=== PATIENT | male | born 1935 | race Caucasian/White ===

== ENCOUNTER 2019-09-27 09:25 | Emergency (ER) | payer MEDICARE, BC, SELFPAY ==
--- NOTE | ~2019-09-27 | CT_ITS ---
EXAMINATION: CT brain wo con DATE: 09/27/2019 09:47 INDICATION: Fall. TECHNIQUE: Computed tomography (CT) of the head was performed without intravenous contrast. The mA wa s adjusted according to patient size. Iterative reconstruction technique was employed. Exam dose: 68 1.00 mGy-cm total exam DLP. COMPARISON: None FINDINGS: There is mild motion artifact. There is very prominent calcification of the carotid siphon and supraclinoid portions of the internal carotid arteries as well as basilar and bilateral vertebral artery calcifications. There is prominent nonspecific diminished attenuation of the subcortical and periventricular cerebral white matter.. This is likely secondary to chronic small vessel ischemic changes. There is prominence of the cortical sulci, ventricles, consistent with cerebral atrophy. There are so me cerebellar atrophy as well. No intracranial mass lesion or hemorrhage, midline shift or mass effect is detected. No subdural or epidural hematoma. No fracture or bone destruction of the cranial vault. IMPRESSION: Cerebral atherosclerosis and chronic small vessel ischemic changes of the cerebral white matter No acute intracranial finding or skull fracture Reviewed, dictated and finalized at [facility]. Reviewed, dictated and finalized at location A.
--- NOTE | ~2019-09-27 | XR_ITS ---
XR shoulder LT min 2V 09/27/2019 09:50 Indication: Left shoulder pain after fall Procedure: 4 views left shoulder Comparison: No prior studies for comparison. Findings: There is a comminuted minimally displaced left humeral neck fracture. Normal anatomic align ment of the glenohumeral and acromioclavicular joints. Osteopenia. No other fracture. Atherosclerosis of the aorta. There are median sternotomy wires from CABG. There is a prosthetic heart valve. Impression: 1: Comminuted minimally displaced left humeral neck fracture. Reviewed, dictated and finalized at location B. Impression: 1: Comminuted minimally displaced left humeral neck fracture.
[2019-09-27 09:20] VITALS: BP 156/80; PULSE 66; RESP 18; TEMP 36.7; O2SAT 99
--- NOTE | 2019-09-27 09:33 | ED.FALL ---
HPI - Fall General Chief Complaint: Fall Stated Complaint: FALL/L SHOULDER PAIN History of Present Illness HPI Narrative: He was trying to step up onto his dock this morning when he lost his balance and fell. He landed on his left shoulder. He had severe pain in the shoulder and was not able to use it to lift himself from the ground. He reports that he did strike his head in the fall. No LOC or wounds. No blood thinners. Related Data Home Medications Medication Instructions Recorded Confirmed cinacalcet 30 mg PO DAILY 01/20/19 02/04/19 furosemide 80 mg PO DAILY 01/20/19 02/04/19 levothyroxine 125 mcg PO DAILY 01/20/19 02/04/19 lisinopril 5 mg PO HS 01/20/19 02/04/19 Renal Caps 1 cap PO DAILY 02/02/19 02/04/19 sevelamer carbonate [Renvela] 800 mg PO TID 02/02/19 02/04/19 tamsulosin [Flomax] 0.4 mg PO HS 02/02/19 02/04/19 finasteride 5 mg PO HS 02/04/19 02/04/19 Allergies Allergy/AdvReac Type Severity Reaction Status Date / Time Penicillins Allergy Severe KIDNEY Verified 05/17/19 10:15 DAMAGE, RASH Sulfa (Sulfonamide AdvReac Unknown Nausea and Verified 05/17/19 10:15 Antibiotics) Vomiting Review of Systems Review of Systems: All systems reviewed & are unremarkable except as noted in HPI and below PMFSH Past Medical History Medical History Acute on chronic renal insufficiency Anemia (Unknown) Aortic valve disease Arthritis Cataracts, bilateral CHF (congestive heart failure) CKD (chronic kidney disease) ESRD (end stage renal disease) dialysis MWF GERD (gastroesophageal reflux disease) Glomerulonephritis Gout HTN (hypertension) Hypothyroid Neuropathy Pacemaker Surgical History Surgical History H/O transurethral resection of prostate History of bladder surgery History of total right knee replacement Hx of CABG x3 vessel, 2009 Hx of tonsillectomy S/P AVR Family History Family History Sibling Family history of Alzheimer's disease Family history of throat cancer Mother Family history of malignant neoplasm of breast in first degree relative Family history of heart disease in male family member before age 55 Patient's mother is Family history of cardiovascular disease Father Family history of heart disease in male family member before age 55 Patient's father is Family history of cardiovascular disease Other Family history of malignant neoplasm of male breast Social History Social History Smoking packs per day: 4 Smoking cigarettes per day: 80.0 Years smoked: 25 Smoking pack-years: 100.00 Smoking status: Former smoker Tobacco type: cigarettes Second hand tobacco smoke exposure: No Smoking end date: 03/16/82 Alcohol intake: former Substance use: never Gender identity (if verbalized by the patient): Male Spiritual care concerns: No Agree to blood products: Yes Exam Const: General: no acute distress Orientation/consciousness: patient oriented x3 HENMT: Head: normal to inspection Eyes: Pupils: Equal, round and reactive pupils present Neck: Neck: normal visual inspection and no lymphadenopathy Chest: Chest palpation & inspection: no tenderness Resp: Effort & Inspection: normal respiratory effort Auscultation: clear to auscultation bilaterally, no rales, no rhonchi and no wheezes Cardio: Jugular venous distension: no JVD Rate: regular rate Rhythm: regular rhythm Heart sounds: no murmurs GI: Inspection: non-distended GI Palp: Yes Soft to palpation and No Tenderness to palpation present (GI) Skin: General skin exam: normal color Neuro: General: patient oriented x3, moves all extremities, no focal motor deficits and CN's II-XI intact bilaterally Speech: normal speec
[2019-09-27 12:01] VITALS: BP 143/84; PULSE 109; RESP 18; TEMP 36.6; O2SAT 100
== END 2019-09-27 12:02 | disposition home or self-care (01) ==
LOC: ANHED 10:31
PROVIDERS: Emergency Provider Emergency Medicine; PCP Internal Medicine
DX: S42.212A Unspecified displaced fracture of surgical neck of left humerus, initial encounter for closed fracture (principal); Z87.891 Personal history of nicotine dependence; I13.2 Hypertensive heart and chronic kidney disease with heart failure and with stage 5 chronic kidney disease, or end stage renal disease; I50.9 Heart failure, unspecified; N18.6 End stage renal disease; Z99.2 Dependence on renal dialysis; K21.9 Gastro-esophageal reflux disease without esophagitis; M19.90 Unspecified osteoarthritis, unspecified site; E03.9 Hypothyroidism, unspecified; W01.0XXA Fall on same level from slipping, tripping and stumbling without subsequent striking against object, initial encounter
CPT/HCPCS: 70450; 73030; 99284

== ENCOUNTER 2019-09-30 11:43 | Emergency (ER) | payer MEDICARE, BC, SELFPAY ==
--- NOTE | ~2019-09-30 | XR_ITS ---
XR elbow LT min 3V 09/30/2019 14:09 INDICATION: Left elbow pain with edema PROCEDURE: 4 views left elbow COMPARISON: No prior studies for comparison. FINDINGS: Fracture, dislocation or subluxation is not identified. There is a partially calcified [place] t overlying the distal humerus. There are heterotopic calcifications in the overlying soft tissues. T he lateral view is nonstandard limiting evaluation for joint effusion. The soft tissues appear within normal limits. No foreign bodies are identified. IMPRESSION: 1: NO ACUTE BONE OR JOINT ABNORMALITY IDENTIFIED. Reviewed, dictated and finalized at location B.
--- NOTE | ~2019-09-30 | US_ITS ---
EXAMINATION: US venous doppler UE LT DATE: 09/30/2019 13:32 INDICATION: Left humerus fracture. TECHNIQUE: Hilario scale images with and without compression and Doppler images of the left upper extrem ity veins were obtained. COMPARISON: 02/05/2019 FINDINGS: The left internal jugular vein, subclavian vein, axillary vein, brachial veins, basilic vein, cephali c vein, radial vein, and ulnar vein are patent. Left upper extremity AV fistula patent. IMPRESSION: 1. Patent left upper extremity veins. No evidence of deep venous thrombosis. Reviewed, dictated and finalized at location B.
[2019-09-30 11:51] VITALS: BP 97/59; PULSE 73; RESP 16; TEMP 36.8; O2SAT 99
[2019-09-30 13:48] VITALS: BP 116/73; PULSE 92; RESP 20; O2SAT 98
[2019-09-30 13:51] LABS: Basophils Percent Auto 0.3 % (0.2-1.2); Eosinophils Absolute Auto 0.1 K/mm3 (0-0.3); Eosinophils Percent Auto 1.3 % (0-4.4); Hematocrit 30.5 % (42.0-52.0); Hemoglobin 10.1 g/dL (14.0-18.0); Immature Granulocyte Absolute 0.04 K/mm3 (0.00-0.031); Immature Granulocyte Percent A 0.7 % (0-0.5); Lymphocytes Absolute Auto 1.01 K/mm3 (0.9-3.2); Lymphocytes Percent Auto 16.5 % (18.3-44.2); Mean Corpuscular HGB Conc 33.1 g/dl (32-36); Mean Corpuscular Hemoglobin 33.1 pg (26-34); Mean Platelet Volume 9.5 fl (7.4-10.4); Monocytes Absolute Auto 0.5 K/mm3 (0.1-0.6); Monocytes Percent Auto 7.7 % (2.6-8.5); Neutrophils Absolute Auto 4.5 K/mm3 (1.3-6.7); Neutrophils Percent Auto 73.5 % (45.5-73.1); Platelet Count Result 164 k/mm3 (150-375); Red Blood Count 3.05 M/mm3 (4.6-6.20); Red Cell Distribution Width 14.8 % (11.5-14.5); White Blood Count 6.1 K/mm3 (4.5-10.0)
[2019-09-30 14:03] LABS: INR 1.2; Prothrombin Time 14.7 Seconds (11.1-14.7)
[2019-09-30 14:04] LABS: Partial Thromboplastin Time 36.6 SECONDS (22.3-36.8)
[2019-09-30 14:05] LABS: Alanine Aminotransferase 11 U/L (4-50); Albumin Level 3.3 g/dL (3.5-5.1); Alkaline Phosphatase 73 U/L (38-126); Aspartate Amino Transferase 20 U/L (17-59); Bilirubin,Total 1.3 mg/dL (0.2-1.3); Blood Urea Nitrogen 44 mg/dL (9-20); CRP 4.4 mg/dL (<1.0); Calcium 8.6 mg/dL (8.4-10.2); Carbon Dioxide 33 mmol/L (22-30); Chloride 89 mmol/L (98-107); Estimated CRCL calculation 9 ml/min; Estimated Glomerular Filt Rate 10; Glucose 108 mg/dL (75-110); Magnesium 2.2 mg/dL (1.6-2.3); Phosphorus 4.8 mg/dL (2.5-4.5); Potassium 4.2 mmol/L (3.4-5.0); Sodium 130 mmol/L (137-145)
--- NOTE | 2019-09-30 14:36 | ED.GENADULT ---
HPI - General Adult General Chief complaint: Extremity Injury, Upper <BROCK Foster Last Filed: 09/30/19 15:25> Stated complaint: arm swelling <BROCK Foster Last Filed: 09/30/19 15:25> Time Seen by Provider: 09/30/19 12:03 <BROCK Foster Last Filed: 09/30/19 15:25> Source: patient and family <BROCK Foster Last Filed: 09/30/19 15:25> Mode of arrival: ambulatory <BROCK Foster Last Filed: 09/30/19 15:25> Limitations: no limitations <BROCK Foster Last Filed: 09/30/19 15:25> History of Present Illness HPI narrative: Patient is an 84-year-old male who presents for reevaluation of left upper extremity pain and swelling patient notes that he was seen in the emergency department diagnosed with a left shoulder fracture placed in immobilizer on the and over the last day he has noticed swelling from the mid humerus down patient denies any new injury or trauma patient presents per private vehicle with his has been taking pain medication with improvement patient was scheduled to get dialysis today and his catheter is in the left arm where his injury is present. Patient is followed by Dr. Bernabe. Patient denies fever chills weakness or other complaints <BROCK Foster Last Filed: 09/30/19 15:25> Related Data Home medications: Home Medications Medication Instructions Recorded Confirmed cinacalcet 30 mg PO DAILY 01/20/19 02/04/19 furosemide 80 mg PO DAILY 01/20/19 02/04/19 levothyroxine 125 mcg PO DAILY 01/20/19 02/04/19 lisinopril 5 mg PO HS 01/20/19 02/04/19 Renal Caps 1 cap PO DAILY 02/02/19 02/04/19 sevelamer carbonate [Renvela] 800 mg PO TID 02/02/19 02/04/19 tamsulosin [Flomax] 0.4 mg PO HS 02/02/19 02/04/19 finasteride 5 mg PO HS 02/04/19 02/04/19 <BROCK Foster Last Filed: 09/30/19 15:25> Allergies/adverse reactions: Allergies Allergy/AdvReac Type Severity Reaction Status Date / Time Penicillins Allergy Severe KIDNEY Verified 09/30/19 11:57 DAMAGE, RASH Sulfa (Sulfonamide AdvReac Unknown Nausea and Verified 09/30/19 11:57 Antibiotics) Vomiting <Som Samayoa PA-C - Last Filed: 09/30/19 15:25> Review of Systems Review of Systems: All systems reviewed & are unremarkable except as noted in HPI and below <Som Samayoa PA-C - Last Filed: 09/30/19 15:25> PMFSH Past Medical History Medical History: Medical History Acute on chronic renal insufficiency Anemia (Unknown) Aortic valve disease Arthritis Cataracts, bilateral CHF (congestive heart failure) CKD (chronic kidney disease) ESRD (end stage renal disease) dialysis MWF GERD (gastroesophageal reflux disease) Glomerulonephritis Gout HTN (hypertension) Hypothyroid Neuropathy Pacemaker <Som Samayoa PA-C - Last Filed: 09/30/19 15:25> Surgical History Surgical History: Surgical History H/O transurethral resection of prostate History of bladder surgery History of total right knee replacement Hx of CABG x3 vessel, 2008 Hx of tonsillectomy S/P AVR <Som Samayoa PA-C - Last Filed: 09/30/19 15:25> Social History Social History: Social History Smoking packs per day: 4 Smoking cigarettes per day: 80.0 Years smoked: 25 Smoking pack-years: 100.00 Smoking status: Former smoker Tobacco type: cigarettes Second hand tobacco smoke exposure: No Smoking end date: 03/16/82 Alcohol intake: former Substance use: never Gender identity (if verbalized by the patient): Male Spiritual care concerns: No Agree to blood products: Yes <Som Samayoa PA-C - Last Filed: 09/30/19 15:25> Exam Narrative: Exam Narrative: GENERAL: Well-appearing, well-nourished, and in no acute distress.
[2019-09-30 15:41] VITALS: BP 131/72; PULSE 62; RESP 24
== END 2019-09-30 15:46 | disposition home or self-care (01) ==
PROVIDERS: Emergency Medicine Emergency Medical Services; Emergency Provider Emergency Medicine; PCP Internal Medicine
DX: R60.9 Edema, unspecified (principal); N18.6 End stage renal disease; I13.2 Hypertensive heart and chronic kidney disease with heart failure and with stage 5 chronic kidney disease, or end stage renal disease; Z99.2 Dependence on renal dialysis; I35.9 Nonrheumatic aortic valve disorder, unspecified; K21.9 Gastro-esophageal reflux disease without esophagitis; M10.9 Gout, unspecified; E03.9 Hypothyroidism, unspecified; Z95.0 Presence of cardiac pacemaker; G62.9 Polyneuropathy, unspecified; Z95.1 Presence of aortocoronary bypass graft; I25.10 Atherosclerotic heart disease of native coronary artery without angina pectoris; Z96.651 Presence of right artificial knee joint; H26.9 Unspecified cataract; F17.210 Nicotine dependence, cigarettes, uncomplicated
CPT/HCPCS: 36415; 73080; 80053; 83735; 84100; 85025; 85610; 85730; 86140; 93971; 96365; 99284; A9270; J0131

== ENCOUNTER 2020-02-05 10:59 | Emergency (ER) | payer MEDICARE, BC, SELFPAY ==
--- NOTE | ~2020-02-05 | CT_ITS ---
EXAMINATION: CT pelvis wo con EXAM DATE: 02/05/2020 12:25 INDICATION: left hip fracture . TECHNIQUE: Spiral CT pelvis wo con was performed without contrast. Axial, coronal and sagittal imag es were reviewed. The dose-length product (DLP) for this examination was 203.30 mGy-cm. The exposur e was tailored according to patient size (auto mA exposure control), and iterative reconstruction ( IR) was used as additional dose reduction technique. Comparison is made to prior examination from 01/20/2019. FINDINGS: There is comminuted left hip greater trochanteric fracture extending toward the lesser troc hanter posteriorly. There is about 1 cm of displacement. No definite fracture line extending through the femoral neck/intertrochanteric region. Uncertain whether or not this would require orthopedic int ervention, consult recommended. The pelvis is intact. Severe prostatomegaly and possible old TURP def ect. IMPRESSION: Left hip greater trochanteric fracture extending toward the lesser trochanter posteriorly , with mild displacement. No definitive fracture of the femoral neck/intertrochanteric region. Reviewed, dictated and finalized at location A. MACIST'S AIDE IMPRESSION: Left hip greater trochanteric fracture extending toward the lesser trochanter posteriorly, with mild displacement. No definitive fracture of the f emoral neck/intertrochanteric region.
--- NOTE | ~2020-02-05 | XR_ITS ---
EXAMINATION: XR hip LT min 3V w AP pelvis EXAM DATE: 02/05/2020 11:50 INDICATION: fall, left hip pain . Initial encounter. TECHNIQUE: Left hip frontal, crosstable lateral and 'frog-leg' projections for interpretation. Fronta l projection pelvis. There is no prior study for comparison. FINDINGS: There is acute closed posttraumatic fracture at the left greater trochanteric region, uncer tain whether or not this extends through the entire intertrochanteric region. Recommend CT scan for f urther evaluation. No hip dislocation. Moderate symmetric bilateral hip osteoarthritis. Scattered vas cular calcifications. Pelvic ring appears intact. IMPRESSION: Left greater trochanteric fracture; recommend CT to evaluate possibility fracture through the intertrochanteric region which would be treated surgically. Reviewed, dictated and finalized at location A. L CADD TECHNICIAN IMPRESSION: Left greater trochanteric fracture; recommend CT to evaluate possib ility fracture through the intertrochanteric region which would be treated surg ically.
[2020-02-05 11:05] VITALS: BP 121/60; PULSE 104; RESP 14; TEMP 36.9; O2SAT 99
--- NOTE | 2020-02-05 11:19 | PC.NURSE ---
patient brought back to ED room 22 after ground level fall today on his way to dialysis. c/o left hip pain. wants to stay in wheelchair due to pain. advised ok for now. may need to be on stretcher and undressed for MD. xray ordered in triage.
--- NOTE | 2020-02-05 11:45 | PC.NURSE ---
patient in xray now. tech here to get stretcher. patient assist of 2 at minimum.
[2020-02-05 13:06] VITALS: BP 127/78; PULSE 67; RESP 20; TEMP 36.3; O2SAT 100
[2020-02-05 13:08] VITALS: BP 127/78; O2SAT 100
--- NOTE | 2020-02-05 13:10 | PC.NURSE ---
resting on stretcher. changed into gown. attempted IV access x 2 without success. Camron PENALOZA to room. SL inserted. labs drawn. will discuss baez placement with provider. alert.oriented. reviewed current treatment plan with patient.
[2020-02-05 13:15] VITALS: O2SAT 100
[2020-02-05 13:18] LABS: Basophils Percent Auto 0.8 % (0.2-1.2); Eosinophils Absolute Auto 0.1 K/mm3 (0-0.3); Eosinophils Percent Auto 2.5 % (0-4.4); Hematocrit 30.5 % (42.0-52.0); Hemoglobin 10.1 g/dL (14.0-18.0); Immature Granulocyte Absolute 0.02 K/mm3 (0.00-0.031); Immature Granulocyte Percent A 0.4 % (0-0.5); Lymphocytes Absolute Auto 0.94 K/mm3 (0.9-3.2); Mean Corpuscular HGB Conc 33.1 g/dl (32-36); Mean Corpuscular Hemoglobin 33.6 pg (26-34); Mean Corpuscular Volume 101.3 fl (80-100); Mean Platelet Volume 9.6 fl (7.4-10.4); Monocytes Absolute Auto 0.3 K/mm3 (0.1-0.6); Monocytes Percent Auto 5.7 % (2.6-8.5); Neutrophils Absolute Auto 3.8 K/mm3 (1.3-6.7); Neutrophils Percent Auto 72.6 % (45.5-73.1); Platelet Count Result 134 k/mm3 (150-375); Red Blood Count 3.01 M/mm3 (4.6-6.20); Red Cell Distribution Width 14.3 % (11.5-14.5); White Blood Count 5.2 K/mm3 (4.5-10.0)
[2020-02-05 13:30] VITALS: O2SAT 100
[2020-02-05 13:31] VITALS: BP 130/56; O2SAT 100
[2020-02-05 13:32] LABS: Partial Thromboplastin Time 32.9 SECONDS (22.3-36.8); Prothrombin Time 14.2 Seconds (11.1-14.7)
[2020-02-05 13:37] LABS: Anion Gap 8 mmol/L (8-16); Blood Urea Nitrogen 48 mg/dL (9-20); Carbon Dioxide 33 mmol/L (22-30); Chloride 93 mmol/L (98-107); Estimated CRCL calculation 12 ml/min; Estimated Glomerular Filt Rate 13; Glucose 104 mg/dL (75-110); Potassium 4.5 mmol/L (3.4-5.0); Sodium 134 mmol/L (137-145)
--- NOTE | 2020-02-05 13:42 | PC.NURSE ---
patient ambulated with walker in room approximately 10 feet. patient instructed on toe touch weight bearing with left leg. gait appeared steady. patient concerned for the 2 steps he has to go up to get in his house.
--- NOTE | 2020-02-05 13:49 | PC.NURSE ---
spoke with provider. will call care coordination. patient states he was recently in rehab at a facility on [address] in [place].
--- NOTE | 2020-02-05 13:52 | PC.NURSE ---
spoke with health care law specialist. she will come down and meet with the patient.
--- NOTE | 2020-02-05 14:09 | ED.FALL ---
HPI - Fall General Chief Complaint: Fall Stated Complaint: fall, left hip pain Time Seen by Provider: 02/05/20 12:05 History of Present Illness HPI Narrative: Patient is an 84-year-old male who presents ER with left hip pain. Patient reports she was walking down the steps in front of his house when he missed the last step and fell onto his left hip. He is unable stand up because his leg kept rotating inwards and due to pain. He has no numbness or tingling. He did not strike his head or lose consciousness. Denies use of blood thinning medications. Related Data Home Medications Medication Instructions Recorded Confirmed cinacalcet 30 mg PO DAILY 01/20/19 12/06/19 furosemide 80 mg PO DAILY 01/20/19 12/06/19 lisinopril 5 mg PO HS 01/20/19 12/06/19 Renal Caps 1 cap PO DAILY 02/02/19 12/06/19 sevelamer carbonate [Renvela] 800 mg PO TID 02/02/19 12/06/19 Allergies Allergy/AdvReac Type Severity Reaction Status Date / Time Penicillins Allergy Severe KIDNEY Verified 02/05/20 13:15 DAMAGE, RASH Sulfa (Sulfonamide AdvReac Unknown Nausea and Verified 02/05/20 13:15 Antibiotics) Vomiting Review of Systems Review of Systems: All systems reviewed & are unremarkable except as noted in HPI and below Constitutional: Constitutional: Denies chills, Denies fever(s) and Denies weakness ENT: Denies nasal congestion and Denies sore throat Gastrointestinal: Gastrointestinal: Denies abdominal pain, Denies diarrhea, Denies nausea and Denies vomiting Musculoskeletal: Musculoskeletal: Denies back pain, Reports arthralgias and Denies joint swelling [facility] Past Medical History Medical History (Updated 02/05/20 @ 15:21 by Sukh Tracy MD) Acute on chronic renal insufficiency Anemia (Unknown) Aortic valve disease Arthritis Cataracts, bilateral CHF (congestive heart failure) CKD (chronic kidney disease) ESRD (end stage renal disease) dialysis MWF GERD (gastroesophageal reflux disease) Glomerulonephritis Gout HTN (hypertension) Hypothyroid Neuropathy Pacemaker Surgical History Surgical History H/O transurethral resection of prostate History of bladder surgery History of total right knee replacement Hx of CABG x3 vessel, 2008 Hx of tonsillectomy S/P AVR Family History Family History Sibling Family history of Alzheimer's disease Family history of throat cancer Mother Family history of malignant neoplasm of breast in first degree relative Family history of heart disease in male family member before age 55 Patient's mother is Family history of cardiovascular disease Father Family history of heart disease in male family member before age 55 Patient's father is Family history of cardiovascular disease Other Family history of malignant neoplasm of male breast Social History Social History Smoking packs per day: 4 Smoking cigarettes per day: 80.0 Years smoked: 25 Smoking pack-years: 100.00 Smoking status: Former smoker Tobacco type: cigarettes Second hand tobacco smoke exposure: No Smoking end date: 03/16/82 Alcohol intake: former Substance use: never Gender identity (if verbalized by the patient): Male Spiritual care concerns: No Agree to blood products: Yes Exam Narrative: Exam Narrative: GENERAL: Well-appearing, well-nourished, and in no acute distress. HEAD: Normocephalic, atraumatic. ENT: Mucous membranes moist. CHEST: Clear to auscultation. No respiratory distress. HEART: Regular rate and rhythm. Normal peripheral pulses. EXTREMITIES: Range of motion of bilateral upper extremities and right lower extremity. Tenderness over the left hip with limited range of motion due to pain. No tenderness with palpation to the distal extremity. Dialysis
--- NOTE | 2020-02-05 14:10 | PC.NURSE ---
reproductive healthcare assistant in room now.
--- NOTE | 2020-02-05 14:49 | PC.NURSE ---
SL removed. assisted patient with shoes and pants. aware to come pick him up. patient wants to get himself dressed the rest. call light in reach. waiting for dc papers.
--- NOTE | 2020-02-05 15:20 | PC.NURSE ---
patient assisted to finish dressing. assisted to wheelchair.
== END 2020-02-05 15:38 | disposition home or self-care (01) ==
PROVIDERS: Emergency Provider Emergency Medicine; PCP Internal Medicine
DX: S72.112A Displaced fracture of greater trochanter of left femur, initial encounter for closed fracture (principal); I13.2 Hypertensive heart and chronic kidney disease with heart failure and with stage 5 chronic kidney disease, or end stage renal disease; N18.6 End stage renal disease; Z99.2 Dependence on renal dialysis; Z87.891 Personal history of nicotine dependence; K21.9 Gastro-esophageal reflux disease without esophagitis; M10.9 Gout, unspecified; Z95.0 Presence of cardiac pacemaker; I25.10 Atherosclerotic heart disease of native coronary artery without angina pectoris; Z95.1 Presence of aortocoronary bypass graft; D64.9 Anemia, unspecified; I35.8 Other nonrheumatic aortic valve disorders; Z96.651 Presence of right artificial knee joint; W10.9XXA Fall (on) (from) unspecified stairs and steps, initial encounter
CPT/HCPCS: 36415; 72192; 73502; 80048; 85025; 85610; 85730; 99284

== ENCOUNTER 2020-03-20 09:45 | Outpatient (CLI) | payer MEDICARE, BC, SELFPAY ==
--- NOTE | ~2020-03-20 | XR_ITS ---
MODIFIED ESOPHAGRAM HISTORY: Dysphagia. TECHNIQUE: Modified barium esophagram was performed by speech pathologist under radiologist fluorosco pic guidance. This was recorded on tape. The exam was reviewed on 03/20/2020 11:56 BOILERMAKER SHIP. The DAP for this procedure was DAP is 2.6 Gycm2. Fluoroscopy time is 3.8 minutes. FINDINGS: Lateral projection of the cervical spine demonstrates normal alignment.. During pharyngea l phase there is reduced laryngeal elevation causing penetration and pyriform sinus residue. There is reduced tongue base retraction and pharyngeal squeeze. There is trace laryngeal penetration and aspi ration which cleared with cough. The cricopharyngeus muscle was prominent.. IMPRESSION: 1: Mild penetration with aspiration which clears with cough and swallow. 2: Please refer to speech pathologist report for additional detail. Reviewed, dictated and finalized at location A. ERMAKER SHIP
--- NOTE | 2020-03-21 15:34 | STOPEVAL ---
MODIFIED BARIUM SWALLOW: Thank you for referring Rico Abreu to [facility].? Attending Provider: DO ALEXIS Burleson Outpatient Evaluation ([facility]) Start: 03/21/20 14:49 Freq: Status: Active Protocol: Document 03/20/20 10:00 BECHERERT (Rec: 03/21/20 15:34 BECHERERT [email or web address]) Therapy Assessment Status Assessment Status Assessment Status Evaluation Outpatient Past Medical History Past Medical History Source of Past Medical History Recalled from Previous Visit, Confirmed with Patient/Family Neurological History Hx Neurological Disorders No Significant History Cardiovascular History Hx Coronary Artery Bypass Graft Yes: 3 vessel 2008 Hx Hypercholesterolemia Yes Hx Hypertension Yes: TAKES MEDS Hx Myocardial Infarction Yes Hx Pacemaker Yes: 04/2018 Hx Valve Replacement Yes: AORTIC PIG VALVE 2009 Respiratory History Hx Respiratory Disorders No Significant History Gastrointestinal History Hx Gastrointestinal Disorders No Significant History Genitourinary History Hx Benign Prostatic Hyperplasia Yes Hx Bladder Surgery Yes: BLOOD CLOT EXTRACTION X4 Hx Dialysis Yes: MWF Hx Kidney Stones Yes: 2018 Hx Renal Disease Yes Hx Transurethral Resection Yes: TURP 2002 Hx Urinary Tract Infection Yes: LAST DOSE ANTIBIOTIC Hx Other Genitourinary Disorders Yes: HEMATURIA SINCE 01/19/19, INDWELLING CATHETER Musculoskeletal History Hx Joint Replacement Yes: RTKA-2013 Hx Orthopedic Surgery Yes: RT KNEE SCOPE 1995 Hematological History Hx Blood Transfusion Reaction Yes Hx Other Hematological Disorders Yes: MGUST Endocrine History Hx Hypothyroidism Yes: TAKES MEDS HEENT History Hx Cataracts Yes: surgery Hx Tonsillectomy Yes Hx Eye Surgery Yes: right eye Hx Other HEENT Disorders Yes: FEVER BLISTER. GLASSES , UPPER DENTURE,LOWER PARTIAL Integumentary History Hx Skin Disorders No Significant History Reproductive History Hx Reproductive Disorders No Significant History Psychosocial History Hx Psychiatric Disorders No Significant History Pain History History of Any Previous or Ongoing No Significant History Instance of Pain Anesthesia History Hx Anesthesia Reactions No Significant History Other History Hx Implanted Device Yes: pacemaker Hx MRSA Yes Hx Recent Acute Infection Yes: UTI MEDICATED Prior Level of Function Prior Swallow Level Prior Intake Method Oral Prior Diet Soft and Bite-Sized (Level 6 Diet) Prior Liquid Consistency
== END 2020-03-20 09:46 | disposition home or self-care (01) ==
PROVIDERS: PCP Internal Medicine; Visit Provider Internal Medicine
DX: R13.10 Dysphagia, unspecified (principal)
CPT/HCPCS: 92611

== ENCOUNTER 2020-09-21 16:53 | Inpatient (IN) | payer MEDICARE, BC, SELFPAY ==
[2020-09-21] VITALS (15 sets, daily range): BP systolic 114–162; BP diastolic 54–80; PULSE 59–82; RESP 14–21; TEMP 36.3–36.9; O2SAT 94–100; BMI 21.0
--- NOTE | ~2020-09-21 | XR_ITS ---
XR urethrocystogram 09/21/2020 15:11 Indication: Urethral abnormality TECHNIQUE: Fluoroscopy used during urethrocystogram performed by [Mike Black MD] on 69 sec onds. 8 fluoroscopic images images captured. ] FINDINGS: Correlate with procedure note. IMPRESSION: Fluoroscopy used during urethrocystogram. Relate with procedural report. Reviewed, dictated and finalized at location A. IMPRESSION: Fluoroscopy used during urethrocystogram. Relate with procedural re port.
--- NOTE | ~2020-09-21 | CT_ITS ---
EXAMINATION: CT guide absc cath placement DATE: 09/23/2020 13:59 INDICATION: Urethral stricture. Urinary retention. TECHNIQUE: The procedure including the risks, benefits, and alternatives was discussed with the patie nt. Risks discussed included bleeding and infection. The patient understood the risks and benefits an d agreed to proceed. The skin overlying the suprapubic region was prepped and draped in usual sterile fashion. Anesthetic was administered with 1% lidocaine subcutaneously. An 18 gauge trochar needle w as inserted into the bladder with CT guidance. The needle was exchanged over a wire for 6 [place] and 8 Bahamian dilators and then for an 8.5 [place]ian pigtail catheter. The catheter was stitched to the skin, and a sterile dressing was applied. The mA was adjusted according to patient size. Iterative reconst ruction technique was employed. The dose-length product was 160.88 mGy-cm. There were no immediate co mplications. The urine was red-sary colored at the end of the procedure. FINDINGS: CT images demonstrate the catheter within the bladder. IMPRESSION: 1. Successful CT-guided suprapubic bladder drainage catheter placement. Reviewed, dictated and finalized at location A.
--- NOTE | 2020-09-21 13:10 | WPDANESEPPF ---
Anes - Initial Pre Proc Eval Procedure: Operation Date: 09/21/20 13:30 Proposed Procedures p Cystoscopy, Urethral Dilatation with Retrograde Pyelogram Bilateral - Mike Black MD Date/Time: 09/21/20 13:10 Surgeon: Mike Black MD Pre Op Diagnosis: urethral Stricture Patient Data Age: 85 Gender: M Height: Weight: Allergies Allergy/AdvReac Type Severity Reaction Status Date / Time Penicillins Allergy Severe KIDNEY Verified 09/21/20 18:13 DAMAGE, RASH Sulfa (Sulfonamide AdvReac Unknown Nausea and Verified 09/21/20 18:13 Antibiotics) Vomiting Home Medications Medication Instructions Recorded Confirmed Type cinacalcet 30 mg PO DAILY 01/20/19 09/21/20 History furosemide 80 mg PO DAILY 01/20/19 09/21/20 History Renal Caps 1 cap PO DAILY 02/02/19 09/21/20 History levothyroxine 125 mcg tablet See Rx Instructions .ROUTE 04/23/20 09/21/20 Rx .COMPLEX #90 tablet vitamin B complex-vitamin C-folic 1 tablet PO DAILY #90 tablet 06/05/20 09/21/20 Rx acid 0.8 mg tablet gabapentin 100 mg capsule See Rx Instructions .ROUTE 07/13/20 09/21/20 Rx .COMPLEX #180 cap Eliquis 2.5 mg PO BID 09/21/20 09/21/20 History amiodarone [Pacerone] 200 mg PO BID 09/21/20 09/21/20 History sevelamer carbonate [Renvela] 800 mg PO AC 09/21/20 09/21/20 History Patient hx anesthesia problems: none Family hx anesthesia problems: none [facility] Past Medical History Medical History (Updated 09/24/20 @ 15:50 by Manav Garcia MD) Adult hypothyroidism (02/03/13) Arthritis Benign prostatic hyperplasia Chronic anemia Coronary artery disease History of bypass and stents. Patient of Dr. Declan Branch at [facility]. End-stage renal disease on hemodialysis Dialysis days Thursday, Thursday, Thursday. Erythropoietin deficiency anemia Gastroesophageal reflux disease Glaucoma Gout History of Helicobacter pylori infection Hypertension Macular degeneration Monoclonal gammopathy of undetermined significance Neuropathy Pacemaker Paroxysmal atrial fibrillation Renal osteodystrophy Surgical History Surgical History History of aortic valve replacement with bioprosthetic valve (~08/2008) History of bilateral cataract extraction History of bladder surgery History of coronary artery bypass graft x 3 (~08/2008) History of cystoscopy History of pacemaker (~04/2018) History of tonsillectomy History of total right knee replacement (~2013) History of transurethral resection of prostate Family History Family History Sibling Family history of Alzheimer's disease Family history of throat cancer Mother Family history of malignant neoplasm of breast in first degree relative Family history of heart disease in male family member before age 55 Patient's mother is Family history of cardiovascular disease Father Family history of heart disease in male family member before age 55 Patient's father is Family history of cardiovascular disease Other Family history of malignant neoplasm of male breast Social History Social History Social History: Surrogate decision maker: Jessie Candelaria, . Code status: Full code. Smoking packs per day: 0.5 Smoking cigarettes per day: 10.0 Years smoked: 25 Smoking pack-years: 12.50 Smoking status: Former smoker Tobacco type: cigarettes Second hand tobacco smoke exposure: No Smoking end date: 02/25/83 Alcohol intake: never Alcohol use details: Social use, maybe 2 beers a month. Substance use: never Additional living arrangements comments: The patient lives in [place] with his Jessie. Additional occupation/education comments: Retired. Gender identity (if verbalized by the patient): Male Sexual Orientation (if Verbalized by t
--- NOTE | 2020-09-21 13:21 | ECG_ITS ---
Measurements Intervals [place] Rate: 62 P: IA: 0 QRS: -59 QRSD: 206 T: 103 QT: 515 QTc: 525 Interpretive Statements ELECTRONIC VENTRICULAR PACEMAKER BASELINE ARTIFACT- I, II, AVR, V1-V6 NO FURTHER INTERPRETATION IS POSSIBLE ATYPICAL ECG Electronically Signed On 09-21-2020 13:44:35 CDT by Otis Plascencia D.O.
[2020-09-21] MEDS: SODIUM CHLORIDE 0.9% IV 500 ML 30 ML IV CONT ×2 (13:30→15:09)
--- NOTE | 2020-09-21 13:40 | WPDANESEPPF ---
Anes - Initial Pre Proc Eval Procedure: Operation Date: 09/21/20 13:30 Proposed Procedures p Cystoscopy, Urethral Dilatation with Retrograde Pyelogram Bilateral - Mike Black MD Date/Time: 09/21/20 13:40 Surgeon: Mike Black MD Pre Op Diagnosis: urethral Stricture Patient Data Age: 85 Gender: M Height: 1.78 m Weight: 66.5 kg Last Vital Signs Temp 98.4 F 09/21/20 13:07 Pulse 64 09/21/20 13:07 Resp 14 09/21/20 13:07 BP 157/61 H 09/21/20 13:07 Pulse Ox 99 09/21/20 13:07 Allergies Allergy/AdvReac Type Severity Reaction Status Date / Time Penicillins Allergy Severe KIDNEY Verified 09/21/20 13:04 DAMAGE, RASH Sulfa (Sulfonamide AdvReac Unknown Nausea and Verified 09/21/20 13:04 Antibiotics) Vomiting Home Medications Medication Instructions Recorded Confirmed Type cinacalcet 30 mg PO DAILY 01/20/19 09/21/20 History furosemide 80 mg PO DAILY 01/20/19 09/21/20 History Renal Caps 1 cap PO DAILY 02/02/19 09/21/20 History levothyroxine 125 mcg tablet See Rx Instructions .ROUTE 04/23/20 09/21/20 Rx .COMPLEX #90 tablet vitamin B complex-vitamin C-folic 1 tablet PO DAILY #90 tablet 06/05/20 09/21/20 Rx acid 0.8 mg tablet gabapentin 100 mg capsule See Rx Instructions .ROUTE 07/13/20 09/21/20 Rx .COMPLEX #180 cap sevelamer carbonate 800 mg tablet 800 mg PO TID #30 tablet 08/23/20 09/21/20 Rx amiodarone [Pacerone] 200 mg PO BID 09/21/20 09/21/20 History apixaban [Eliquis] 2.5 mg PO DAILY 09/21/20 09/21/20 History Patient hx anesthesia problems: none Family hx anesthesia problems: none [facility] Past Medical History Medical History Acute on chronic renal insufficiency Anemia (Unknown) Aortic valve disease Arthritis Cataracts, bilateral CHF (congestive heart failure) CKD (chronic kidney disease) ESRD (end stage renal disease) dialysis MWF GERD (gastroesophageal reflux disease) Glomerulonephritis Gout HTN (hypertension) Hypothyroid Neuropathy Pacemaker Surgical History Surgical History H/O transurethral resection of prostate History of bladder surgery History of total right knee replacement Hx of CABG x3 vessel, 2009 Hx of tonsillectomy S/P AVR Family History Family History Sibling Family history of Alzheimer's disease Family history of throat cancer Mother Family history of malignant neoplasm of breast in first degree relative Family history of heart disease in male family member before age 55 Patient's mother is Family history of cardiovascular disease Father Family history of heart disease in male family member before age 55 Patient's father is Family history of cardiovascular disease Other Family history of malignant neoplasm of male breast Social History Social History (Updated 06/05/20 @ 13:36 by Shavon Michelle MA) Smoking packs per day: 4 Smoking cigarettes per day: 80.0 Years smoked: 25 Smoking pack-years: 100.00 Tobacco type: cigarettes Second hand tobacco smoke exposure: No Smoking end date: 02/25/83 Alcohol intake: current Alcohol use details: Social Substance use: never Gender identity (if verbalized by the patient): Male Spiritual care concerns: No Agree to blood products: Yes Anes - Eval Final PreProcedure Day of Procedure 09/21/20 13:40 Patient weight: normal Heart: regular rate and rhythm Lungs: clear to auscultation Airway: Mallampati scale Neurological: alert and oriented Last oral intake: >/= 8 hours ASA classification: IV Emergent: no Anesthetic plan: proceed Anesthesia type and monitoring: general LMA and standard monitoring Informed Consent: The patient's anesthetic plan and its attendant risks and benefits were discussed with the patient/family/POAMeena Anderson
[2020-09-21 14:04] LABS: Anion Gap 12 mmol/L (8-16); Blood Urea Nitrogen 39 mg/dL (9-20); Calcium 9.3 mg/dL (8.4-10.2); Carbon Dioxide 29 mmol/L (22-30); Chloride 92 mmol/L (98-107); Estimated CRCL calculation 10 ml/min; Estimated Glomerular Filt Rate 13; Glucose 87 mg/dL (75-110); Potassium 4.2 mmol/L (3.4-5.0); Sodium 133 mmol/L (137-145)
[2020-09-21 14:12] LABS: Basophils Absolute Auto 0.1 K/mm3 (0.0-0.1); Basophils Percent Auto 1.6 % (0.2-1.2); Eosinophils Absolute Auto 0.2 K/mm3 (0-0.3); Eosinophils Percent Auto 3.4 % (0-4.4); Hematocrit 37.2 % (42.0-52.0); Hemoglobin 11.7 g/dL (14.0-18.0); Immature Granulocyte Absolute 0.03 K/mm3 (0.00-0.031); Immature Granulocyte Percent A 0.5 % (0-0.5); Lymphocytes Absolute Auto 1.17 K/mm3 (0.9-3.2); Mean Corpuscular HGB Conc 31.5 g/dl (32-36); Mean Corpuscular Hemoglobin 32.9 pg (26-34); Mean Corpuscular Volume 104.5 fl (80-100); Mean Platelet Volume 10.1 fl (7.4-10.4); Monocytes Absolute Auto 0.3 K/mm3 (0.1-0.6); Monocytes Percent Auto 5.4 % (2.6-8.5); Neutrophils Absolute Auto 3.8 K/mm3 (1.3-6.7); Neutrophils Percent Auto 68.1 % (45.5-73.1); Platelet Count Result 155 k/mm3 (150-375); Red Blood Count 3.56 M/mm3 (4.6-6.20); Red Cell Distribution Width 15.9 % (11.5-14.5); White Blood Count 5.6 K/mm3 (4.5-10.0)
--- NOTE | 2020-09-21 14:12 | WPDHPUPDATE1 ---
History and Physical Update Update Date/Time: 09/21/20 14:12 History and Physical has been reviewed, including an updated exam of the patient. There are NO changes in the patient's condition. Risks, benefits, and alternatives have been discussed and questions answered. Patient agrees to proceed with procedure.
--- NOTE | 2020-09-21 14:17 | SUR.PREOP ---
bloody urine drainage currently ,wearing adult diaper.
[2020-09-21] MEDS: ceFAZolin 2 GM/D5W 50 ML 2 GM/50 ML BAG IVPB (14:19)
[2020-09-21 14:23] LABS: INR 1.2
[2020-09-21 14:24] LABS: Partial Thromboplastin Time 35.1 SECONDS (22.3-36.8)
[2020-09-21] MEDS: LIDOCAINE HCL 2% GEL UROJET 10 ML PKG MUCOUS MEM (14:47)
[2020-09-21] MEDS: fentaNYL CITRATE INJ (*CRX) 100 MCG/2 ML VIAL 25 MCG IV PUSH ×7 (15:31→16:30)
--- NOTE | 2020-09-21 16:17 | W.PM.PROC2 ---
Procedure Note - Detailed Date of Procedure 09/21/20 Pre-op Diagnosis urethral Stricture Post-op Diagnosis same Procedure Performed Cystoscopy, retrograde urethrogram, attempted Lassiter catheter placement Surgeon Mike Black MD Anesthesia MAC Indications urinary retention Findings obliterated urethra Description of Procedure informed consent was obtained. Patient taken to the operating room. He was given preoperative IV antibiotics. he was given a mac anesthetic. We performed a retrograde urethrogram that showed contrast filling the penile and bulbar urethra and then stopping. We implants a cystoscope with flexible and rigid and noted significant scarring at the area of the membranous urethra without any contrast advancing past this area. After [id number] of trying to pass a wire and performing multiple retrograde urethrograms we elected to abort at this time. As the patient is currently on anticoagulation and is already scheduled for dialysis tomorrow, we elected not to place a suprapubic tube at this time. I expect we should place a SP tube went off anticoagulation or if the patient becomes uncomfortable from urinary retention Drains No Packing No Pathology none sent Complications No immediate complications Condition stable Disposition PACU
--- NOTE | 2020-09-21 16:45 | PM.IMHP ---
H&P: HPI History of Present Illness Date/Time: 09/21/20 16:45 Chief Complaint: Urethral stricture. Narrative: This is a very pleasant 85-year-old male whom the hospitalist service has been asked to direct admit from the PACU after he was found to have an obliterated urethra on cystoscopy performed due to urinary retention. His medical history is significant for end-stage renal disease on hemodialysis for many years, coronary artery disease status post bypass in 2008 with a reported recent stent placed within the last week although this has not yet been verified, aortic stenosis status post porcine aortic valve replacement in 2008, paroxysmal atrial fibrillation recently started apixaban and amiodarone, hypertension, and hypothyroidism. Despite being on dialysis for over a decade he still urinates between 200 to 400 mL a day though he has had increasing difficulties urinating over the last week or so. He was seen in the urology office today and despite 3 attempts, a Lassiter catheter was unable to be placed. He was then taken for cystoscopy per Dr. Black where he was found to have significant scarring in the area of the membranous urethra with no contrast advancing passes area consistent with obliterated urethra. After approximately 30 minutes of trying to pass a wire the procedure was aborted and it was felt that he would probably need a suprapubic catheter though that has also been postponed as he has been on clopidogrel and apixaban which will need to be held before the procedure. On his external medication history it looks like he was 1st prescribed clopidogrel on August 05, 2020 and he may have had a stent placed at that time however the patient maintains that he had a stent placed in his heart sometime this past week. He reports recently being started on apixaban however I do not see that in his external medication list. In any event, at the time my evaluation he has no specific complaints aside from moderate bladder spasms. He denies fever, chills, sweats, chest pain, shortness of breath, palpitations, nausea, vomiting, hematuria, and diarrhea. Review of Systems Review of Systems: Narrative: Twelve systems were reviewed with pertinent positives and negatives as per HPI. No recent cold or flu symptoms. No exposure to those positive for COVID-19. Except as documented, all other systems were reviewed and are negative. [facility] Past Medical History Medical History (Updated 09/21/20 @ 21:04 by Tennille White PA-C) Adult hypothyroidism (02/03/13) Arthritis Benign prostatic hyperplasia Chronic anemia Coronary artery disease History of bypass and stents. Patient of Dr. Declan Branch at [facility]. End-stage renal disease on hemodialysis Dialysis days Thursday, Thursday, Thursday. Gastroesophageal reflux disease Glaucoma Gout History of Helicobacter pylori infection Hypertension Macular degeneration Monoclonal gammopathy of undetermined significance Neuropathy Pacemaker Paroxysmal atrial fibrillation Surgical History Surgical History (Updated 09/21/20 @ 20:58 by Tennille White PA-C) History of aortic valve replacement with bioprosthetic valve (~08/2008) History of bilateral cataract extraction History of bladder surgery History of coronary artery bypass graft x 3 (~08/2008) History of cystoscopy History of pacemaker (~04/2018) History of tonsillectomy History of total right knee replacement (~2013) History of transurethral resection of prostate Family History Family History Sibling Family history of Alzheimer's disease Family history of throat cancer Mother Family history of malignant neoplasm of breast in first degree relative Family history of heart disease in male family member before age 55 Patient's mother is Family history of cardiovascular disease Father Family history of heart disease in male family member before age
[2020-09-21] MEDS: HYOSCYAMINE SULFATE 0.125 MG TABLET PO ×2 (16:49→22:11)
--- NOTE | 2020-09-21 17:59 | SUR.PHASEI ---
1740- abd changed aroundd penis. significantly less blood present.
--- NOTE | 2020-09-21 18:03 | ADMGEN ---
This patient, Rico Abreu, was admitted to -. Patient/family oriented to hospital policies and general routines including ID bracelet, bed and alarms, visiting hours, pain management, procedures, bathroom and other care routines, personal items, smoking policy, room service/diet, and visiting hours. Information on how to activate the Rapid Response Team has been discussed. Patient/Family are encouraged to report perceived risks to care and to ask questions if they do not understand what they are told or what they should do.
[2020-09-22] VITALS (22 sets, daily range): BP systolic 97–159; BP diastolic 46–73; PULSE 52–67; RESP 16–18; TEMP 36.2–37; O2SAT 94–100
[2020-09-22] MEDS: HYOSCYAMINE SULFATE 0.125 MG TABLET PO ×2 (04:28→21:29)
--- NOTE | 2020-09-22 04:45 | PC.NURSE ---
pt unable to void yet. c/o of discomfort, bladder scan shows 522 mL. o/c urologist notified. To make NPO for now in case procedure is to be done today. pt agreeable with plan. will ctm.
[2020-09-22 06:13] LABS: Hematocrit 31.2 % (42.0-52.0); Hemoglobin 9.7 g/dL (14.0-18.0); Mean Corpuscular HGB Conc 31.1 g/dl (32-36); Mean Corpuscular Hemoglobin 32.7 pg (26-34); Mean Corpuscular Volume 105.1 fl (80-100); Mean Platelet Volume 10.3 fl (7.4-10.4); Platelet Count Result 140 k/mm3 (150-375); Red Blood Count 2.97 M/mm3 (4.6-6.20); White Blood Count 5.7 K/mm3 (4.5-10.0)
[2020-09-22 06:53] LABS: Alkaline Phosphatase 71 U/L (38-126); Anion Gap 9 mmol/L (8-16); Aspartate Amino Transferase 26 U/L (17-59); Blood Urea Nitrogen 39 mg/dL (9-20); Calcium 8.5 mg/dL (8.4-10.2); Carbon Dioxide 29 mmol/L (22-30); Chloride 95 mmol/L (98-107); Estimated CRCL calculation 9 ml/min; Estimated Glomerular Filt Rate 11; Glucose 83 mg/dL (75-110); Sodium 133 mmol/L (137-145)
[2020-09-22 07:12] LABS: Alanine Aminotransferase < 6 U/L (4-50)
[2020-09-22 07:55] LABS: Folic Acid > 20.0 ng/mL (2.76->20)
--- NOTE | 2020-09-22 10:47 | PM.CNNEP ---
Assessment and Plan Assessment and plan (1) End-stage renal disease on hemodialysis: Code(s): N18.6 - End stage renal disease; Z99.2 - Dependence on renal dialysis Status: Acute Assessment and Plan: Rico has end-stage renal disease. He did not have dialysis yesterday so we will schedule this for today. We will not use heparin. his volume status looks okay. His potassium is okay. He does not have much fluid on. Will shoot for 1 or 2L (2) Urinary retention: Code(s): R33.9 - Retention of urine, unspecified Status: Acute Assessment and Plan: the patient is going to get a suprapubic catheter shortly hopefully. He is very uncomfortable (3) Coronary artery disease: Code(s): I25.10 - Atherosclerotic heart disease of [place] coronary artery without angina pectoris Status: Acute Assessment and Plan: he sees Dr. Branch as an outpatient. He has been doing well without any chest pain or shortness of breath (4) Paroxysmal atrial fibrillation: Code(s): I48.0 - Paroxysmal atrial fibrillation Status: Chronic Assessment and Plan: he has a pacemaker and his heart rate is Good in the 60s and his rhythm is regular. 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 We will use Epogen (7) Renal osteodystrophy: Code(s): N25.0 - Renal osteodystrophy Status: Acute Assessment and Plan: will check a [facility] History of Present Illness Reason for Consult Consult date: 09/22/20 Chief Complaint Chief complaint: urethral Stricture History of Present Illness Narrative: JOANA Shankar is a very pleasant 85-year-old gentleman who has multiple medical problems including coronary artery disease, hypothyroidism, end-stage renal disease on dialysis Wednesdays and Fridays, renal osteodystrophy, anemia of chronic kidney disease, BPH, arthritis, GERD, gout, monoclonal gammopathy of uncertain significance , paroxysmal atrial fibrillation. the patient has been having discomfort in his ashely area. He went to see Dr. Pacheco who scheduled him for cystoscopy. During cystoscopy they were unable to get through the urethra to the bladder. The tried passing a wire but were unable to so the procedure was abandoned and he was admitted. He says that he use to make some urine up until day before yesterday but now cannot pass any urine and his bladder is distended and he is very uncomfortable. He has some blood coming from his urethra as well. He is planned for a suprapubic catheter they are just waiting for his anticoagulants to wear off. The patient denies chest pain or shortness of breath. He did not have dialysis yesterday. Review of Systems Constitutional: Constitutional: Reports no additional constitutional complaints Eyes: Eyes: Reports no additional eye complaints ENT: Reports system reviewed and no additional complaints, except as documented Cardiovascular: Cardiovascular: Reports no additional cardiovascular complaints Respiratory: Respiratory: Reports no additional respiratory complaints Gastrointestinal: Gastrointestinal: Reports no additional gastrointestinal complaints Genitourinary: Genitourinary: Reports no additional male genitourinary complaints Musculoskeletal: Musculoskeletal: Reports no additional musculoskeletal complaints Integumentary/Breasts: Skin/Breast: Reports system reviewed and no additional complaints, except as docu Neurologic: Reports system reviewed and no additional complaints, except as documented Psychiatric: Psychiatric: Reports no additional psychiatric complaints Endocrine: Endocrine: Reports no additional endocrine complaints P
--- NOTE | 2020-09-22 11:37 | WPDUROPN2 ---
Progress Note: A&P Assessment and Plan (1) Urinary retention: Code(s): R33.9 - Retention of urine, unspecified Status: Acute (2) Urethral stricture: Code(s): N35.919 - Unspecified urethral stricture, male, unspecified site Status: Acute Additional Plan plan for dialysis today and placement of IR guided SP tube tomorrow after anticoagulation has had time to clear given renal impairment -hold pradaxa -I reviewed retrograde urethrogram and CT with radiology and given bowel adjacent to bladder and bilateral hernia, safest approach would be SP tube placed by IR followed by upsizing to larger bore SP cath when he has had more time off of anti-coagulation to decrease bleeding risks. -NPO at midnight Time Spent With Patient Time with patient: 25 - 35 minutes Subjective Subjective Date/Time Seen: 09/22/20 11:37 Interval history: unable to void. blader scan 500 this am. no pain. scheduled for dialysis today. Exam Const: General: comfortable and no acute distress Cardio: Rate: regular rate Rhythm: regular rhythm GI: Inspection: non-distended GI Palp: Yes Soft to palpation, No Tenderness to palpation present (GI) and No Guarding due to palpation present (GI) Skin: General skin exam: normal color and no rashes or lesions noted Extrem: General: normal to inspection Psych: Mental Status: mental status grossly normal Affect: normal affect Objective Data Vital Signs Vital Signs: Vital Signs - 24 hr 09/21/20 13:07 09/21/20 15:09 09/21/20 15:25 Temperature 36.9 C 36.5 C 36.5 C Pulse Rate 64 63 60 Respiratory Rate 14 16 14 Blood Pressure 157/61 H 120/55 L 155/75 H Pulse Oximetry 99 99 99 09/21/20 15:40 09/21/20 15:55 09/21/20 16:10 Temperature 36.5 C Pulse Rate 63 61 60 Respiratory Rate 17 16 21 H Blood Pressure 161/75 H 139/64 162/72 H Pulse Oximetry 99 96 96 09/21/20 16:20 09/21/20 16:25 09/21/20 16:45 Temperature Pulse Rate 63 62 62 Respiratory Rate 14 20 15 Blood Pressure 129/64 140/68 144/70 H Pulse Oximetry 96 96 95 09/21/20 17:00 09/21/20 17:15 09/21/20 17:45 Temperature Pulse Rate 60 60 68 Respiratory Rate 14 14 16 Blood Pressure 157/65 H 137/63 158/80 H Pulse Oximetry 94 94 96 09/21/20 18:00 09/21/20 18:30 09/21/20 22:00 Temperature 36.7 C 36.6 C 36.3 C L Pulse Rate 59 L 69 82 Respiratory Rate 16 16 16 Blood Pressure 154/68 H 154/70 H 114/54 L Pulse Oximetry 100 100 96 09/22/20 00:00 09/22/20 04:00 09/22/20 08:00 Temperature 36.4 C 36.2 C L 36.7 C Pulse Rate 63 60 64 Respiratory Rate 16 18 16 Blood Pressure 121/46 L 131/56 L 124/56 L Pulse Oximetry 97 98 100 Intake/Output Intake/Output: Intake & Output 09/19/20 09/20/20 09/21/20 09/22/20 23:59 23:59 23:59 23:59 Intake Total 50 Balance 50 Meds/Results Medications: Active Medications Generic Name Dose Route Start Last Admin Trade Name Freq PRN Reason Stop Dose Admin Acetaminophen 650 mg 09/21/20 21:12 Acetaminophen 325 Mg Tablet PO Q6H PRN Mild Pain (1-3) or Fever Hydrocodone Bitart/Acetaminophen 1 tab 09/21/20 21:14 Hydrocodone/Acetaminophen (*Crx) 5-325 Mg Tablet PO Q6H PRN Pain Rated 4-6 Epoetin Tyler-epbx 10,000 units 09/22/20 08:25 Epoetin Tyler-Epbx 10,000 Units/Ml Vial IV PUSH MOWEFR BRENDON Hyoscyamine 0.125 mg 09/21/20 21:14 09/22/20 04:28 Hyoscyamine Sulfate 0.125 Mg Tablet PO 0.125 mg Q4H PRN Administration Bladder Spasm Albumin Human 50 mls @ 999 mls/hr 09/22/20 08:25 Albutein IVPB 09/23/20 08:26 Q10M PRN HYPOTENSION Radiology Results: ITS Impressions Cystogram 09/21/20 18:20 IMPRESSION: Fluoroscopy used during urethrocystogram. Relate with procedural report. Labs Labs: Laboratory Results - last 24 hr 09/21/20 09/21/20 09/21/20 13:28 14:02 14:02 WBC 5.6 RBC 3.56 L Hgb 11.7 L Hct 37.2 L MCV 104.5 H MCH 32.9 MCHC 31.5 L RDW 15.9 H
--- NOTE | 2020-09-22 12:25 | PM.IMPN ---
Progress Note: A&P Assessment and Plan (1) Urethral stricture: Code(s): N35.919 - Unspecified urethral stricture, male, unspecified site Status: Acute Assessment and Plan: Patient had scheduled cystoscopy for 09/21. A retrograde urethrogram performed and showed contrast filling the penile and bulbar urethra and then stopping. Cystoscope noted significant scarring at the area of the membranous urethra without any contrast advancing past this area. After multiple attempts to pass a wire, the procedure was aborted. Patient was admitted with plans for suprapubic catheter tomorrow. Apixaban on hold. Because the patient reports having a stent placed sometime this week, we will need to confirm exactly what procedure he had done. Plavix not listed as a home medication. Records have been requested from Dr. Branch, his desktop technician at [facility], for review. (2) Urinary retention: Code(s): R33.9 - Retention of urine, unspecified Status: Acute Assessment and Plan: Despite being on dialysis for well over a decade, patient still urinates between 200 - 400 mL a day. Unfortunately he is having issues with retention related to the obliterated urethra and will need a suprapubic catheter. SP scheduled for tomorrow. (3) Chronic anemia: Code(s): D64.9 - Anemia, unspecified Status: Acute Assessment and Plan: Hemoglobin 11.7 on admission but dropped to 9.7 today. Some of this related to recent procedure with now penile bleeding. Possibly bleeding into the bladder? Chronic anemia related to his ESRD. Follow. (4) Paroxysmal atrial fibrillation: Code(s): I48.0 - Paroxysmal atrial fibrillation Status: Chronic Assessment and Plan: Continue amiodarone. Await records from recent hospitalization. Hold Eliquis until SP catheter placed. (5) Coronary artery disease: Code(s): I25.10 - Atherosclerotic heart disease of [place] coronary artery without angina pectoris Status: Acute Assessment and Plan: CAD s/p CABG x3v in 2008. Patient reports having a stent placed sometime within the last week but Plavix not listed on his home med list. He states he had to have laser therapy to his coronary arteries and stents placed. He was given Amio 200mg BID. Old records requested. We are waiting for confirmation of this procedure with his desktop technician, Dr. Declan Branch, at [facility]. (6) End-stage renal disease on hemodialysis: Code(s): N18.6 - End stage renal disease; Z99.2 - Dependence on renal dialysis Status: Acute Assessment and Plan: Patient missed HD yesterday and appears fluid overloaded. He states plan is for HD later today. Will hold Lasix and use HD to control fluid status. Dr. Bernabe consulted for dialysis and appreciate his input. (7) Hypertension: Code(s): I10 - Essential (primary) hypertension Status: Chronic Assessment and Plan: Blood pressures reviewed on 09/22. BP remains well controlled. Not on anti-HTN medications per se but does take Lasix. Hold lasix since patient will have HD later today. (8) Adult hypothyroidism: Onset Date: 02/03/13 Code(s): E03.9 - Hypothyroidism, unspecified Status: Acute Assessment and Plan: TSH normal. Continue levothyroxine (9) DVT prophylaxis: Code(s): Z29.9 - Encounter for prophylactic measures, unspecified Status: Acute Assessment and Plan: SCDs Subjective Date/time seen: 09/22/20 12:25 Interval history: 85yo male with ESRD, AVR, pAFib and CAD admitted after attempted cystoscopy and found to have obliterated urethra. Having more pain in the lower abd today. No CP or SOB but later does admit to feeling SOB with laying flat in bed. HD on // but missed HD yesterday. having bloody discharge from the penis Exam Narrative: Exam Narrative: AF 98.1 124/56 64 16 100% Gen - NARD lying
[2020-09-22] MEDS: HYDROcodone/acetaminophen (*CRX) 5-325 MG TABLET 1 TAB PO (16:37)
[2020-09-22] MEDS: SEVELAMER CARBONATE 800 MG TABLET PO (16:38)
[2020-09-22 18:08] LABS: Hepatitis B Surface Antigen Negative (Negative)
[2020-09-22 18:27] LABS: Hepatitis B Surface Anti Res Positive
[2020-09-22] MEDS: GABAPENTIN 100 MG CAPSULE BY MOUTH (21:29)
[2020-09-22] MEDS: AMIODARONE HCL 200 MG TABLET PO (21:31)
[2020-09-23] VITALS (7 sets, daily range): BP systolic 105–132; BP diastolic 55–64; PULSE 62–78; RESP 16–18; TEMP 36.6–37; O2SAT 95–97
[2020-09-23] MEDS: HYOSCYAMINE SULFATE 0.125 MG TABLET PO (00:48)
[2020-09-23 07:21] LABS: Hematocrit 32.7 % (42.0-52.0); Hemoglobin 10.3 g/dL (14.0-18.0); Mean Corpuscular HGB Conc 31.5 g/dl (32-36); Mean Corpuscular Volume 104.8 fl (80-100); Mean Platelet Volume 10.3 fl (7.4-10.4); Platelet Count Result 147 k/mm3 (150-375); Red Blood Count 3.12 M/mm3 (4.6-6.20); Red Cell Distribution Width 16.1 % (11.5-14.5); White Blood Count 5.1 K/mm3 (4.5-10.0)
[2020-09-23 07:44] LABS: Albumin Level 3.1 g/dL (3.5-5.1); Anion Gap 9 mmol/L (8-16); Blood Urea Nitrogen 20 mg/dL (9-20); Carbon Dioxide 33 mmol/L (22-30); Chloride 94 mmol/L (98-107); Estimated CRCL calculation 14 ml/min; Estimated Glomerular Filt Rate 17; Glucose 92 mg/dL (75-110); Phosphorus 3.9 mg/dL (2.5-4.5); Potassium 3.9 mmol/L (3.4-5.0); Sodium 136 mmol/L (137-145)
[2020-09-23] MEDS: AMIODARONE HCL 200 MG TABLET PO ×2 (09:01→20:15)
[2020-09-23] MEDS: VITAMIN B CMPLX/VIT C/FOLIC AC 1 CAPSULE 1 CAP PO (09:02)
[2020-09-23] MEDS: CINACALCET 30 MG TABLET PO (09:02)
[2020-09-23] MEDS: HYDROcodone/acetaminophen (*CRX) 5-325 MG TABLET 1 TAB PO (09:03)
--- NOTE | 2020-09-23 10:12 | PM.PNNEP ---
Progress Note: A&P Assessment and Plan (1) End-stage renal disease on hemodialysis: Code(s): N18.6 - End stage renal disease; Z99.2 - Dependence on renal dialysis Status: Acute Assessment and Plan: Rico has end-stage renal disease. he had dialysis yesterday and it went well. His volume status looks okay today and his potassium is fine (2) Urinary retention: Code(s): R33.9 - Retention of urine, unspecified Status: Acute Assessment and Plan: the patient feels like his bladder is full. He will get a suprapubic catheter today. This scheduled for 1:00 p.m. (3) Coronary artery disease: Code(s): I25.10 - Atherosclerotic heart disease of [place] coronary artery without angina pectoris Status: Acute Assessment and Plan: no chest pain or shortness of breath (4) Paroxysmal atrial fibrillation: Code(s): I48.0 - Paroxysmal atrial fibrillation Status: Chronic Assessment and Plan: he has a pacemaker and his heart rate is good in the 60s and his rhythm is regular. 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 We will use Epogen (7) Renal osteodystrophy: Code(s): N25.0 - Renal osteodystrophy Status: Acute Assessment and Plan: calcium and phosphorus are normal Subjective Date/time seen: 09/23/20 10:12 Interval history: Rico is still uncomfortable. He still has not urinated of course because of the fibrosed urethra. Still waiting for his Eliquis to wear off. He will be getting his suprapubic tube this afternoon at 1:00 p.m.. His mouth is dry initial throughout his course. He is going to get some cough drops. Review of Systems Cardiovascular: Cardiovascular: Reports no additional cardiovascular complaints Respiratory: Respiratory: Reports no additional respiratory complaints Gastrointestinal: Gastrointestinal: Reports no additional gastrointestinal complaints Genitourinary: Genitourinary: Reports no additional male genitourinary complaints Exam Narrative: Exam Narrative: WDWN in NAD skin no rash head ncat lungs clear Bilaterally cor reg no rub abd BS+ nontender and soft ext no edema. Objective Data Vital Signs Vital Signs: Vital Signs - 24 hr 09/22/20 12:00 09/22/20 16:00 09/22/20 17:10 Temperature 36.7 C 36.8 C 36.7 C Pulse Rate 61 64 67 Respiratory Rate 16 16 18 Blood Pressure 136/69 147/64 H 148/71 H Pulse Oximetry 98 98 09/22/20 17:15 09/22/20 17:30 09/22/20 17:45 Temperature Pulse Rate 65 59 L 60 Respiratory Rate Blood Pressure 133/54 L 127/55 L 105/57 L Pulse Oximetry 09/22/20 18:00 09/22/20 18:15 09/22/20 18:30 Temperature Pulse Rate 60 57 L 60 Respiratory Rate Blood Pressure 106/48 L 115/55 L 97/53 L Pulse Oximetry 09/22/20 18:45 09/22/20 19:00 09/22/20 19:15 Temperature Pulse Rate 60 60 60 Respiratory Rate Blood Pressure 112/59 L 120/57 L 132/61 Pulse Oximetry 09/22/20 19:30 09/22/20 19:45 09/22/20 20:00 Temperature Pulse Rate 61 59 L 63 Respiratory Rate Blood Pressure 136/57 L 135/61 148/73 H Pulse Oximetry 09/22/20 20:15 09/22/20 20:30 09/22/20 21:31 Temperature 36.6 C Pulse Rate 60 59 L 61 Respiratory Rate 18 Blood Pressure 130/57 L 159/69 H Pulse Oximetry 09/22/20 22:00 09/23/20 06:00 09/23/20 09:01 Temperature 36.5 C 36.6 C Pulse Rate 52 L 69 78 Respiratory Rate 16 18 Blood Pressure 140/52 L 132/64 Pulse Oximetry 94 95 Intake/Output Intake/Output: Intake & Output 09/20/20 09/21/20 09/22/20 09/23/20 23:59 23:59 23:59 23:59 Intake Total 50 570 250 Output Total 84807 Balance 50 -60189 250
--- NOTE | 2020-09-23 10:48 | WPDUROPN2 ---
Progress Note: A&P Assessment and Plan (1) Urinary retention: Code(s): R33.9 - Retention of urine, unspecified Status: Acute Assessment and Plan: likely due to urethral stricture. Dr Black unable to find true lumen. appears obliterated on RUG. (2) Urethral stricture: Code(s): N35.919 - Unspecified urethral stricture, male, unspecified site Status: Acute Assessment and Plan: SP tube with CT guidance at 1 pm. dialysis yesterday. he has been off of anticoagulation Subjective Subjective Date/Time Seen: 09/23/20 10:48 small amount of urine per urethra. no pain. scheduled for [address] guided tube placement Exam Const: General: comfortable and no acute distress Cardio: Rate: regular rate Rhythm: regular rhythm GI: Inspection: non-distended Skin: General skin exam: normal color and no rashes or lesions noted Extrem: General: normal to inspection Psych: Mental Status: mental status grossly normal Affect: normal affect Objective Data Vital Signs Vital Signs: Vital Signs - 24 hr 09/22/20 12:00 09/22/20 16:00 09/22/20 17:10 Temperature 36.7 C 36.8 C 36.7 C Pulse Rate 61 64 67 Respiratory Rate 16 16 18 Blood Pressure 136/69 147/64 H 148/71 H Pulse Oximetry 98 98 09/22/20 17:15 09/22/20 17:30 09/22/20 17:45 Temperature Pulse Rate 65 59 L 60 Respiratory Rate Blood Pressure 133/54 L 127/55 L 105/57 L Pulse Oximetry 09/22/20 18:00 09/22/20 18:15 09/22/20 18:30 Temperature Pulse Rate 60 57 L 60 Respiratory Rate Blood Pressure 106/48 L 115/55 L 97/53 L Pulse Oximetry 09/22/20 18:45 09/22/20 19:00 09/22/20 19:15 Temperature Pulse Rate 60 60 60 Respiratory Rate Blood Pressure 112/59 L 120/57 L 132/61 Pulse Oximetry 09/22/20 19:30 09/22/20 19:45 09/22/20 20:00 Temperature Pulse Rate 61 59 L 63 Respiratory Rate Blood Pressure 136/57 L 135/61 148/73 H Pulse Oximetry 09/22/20 20:15 09/22/20 20:30 09/22/20 21:31 Temperature 36.6 C Pulse Rate 60 59 L 61 Respiratory Rate 18 Blood Pressure 130/57 L 159/69 H Pulse Oximetry 09/22/20 22:00 09/23/20 06:00 09/23/20 09:01 Temperature 36.5 C 36.6 C Pulse Rate 52 L 69 78 Respiratory Rate 16 18 Blood Pressure 140/52 L 132/64 Pulse Oximetry 94 95 Intake/Output Intake/Output: Intake & Output 09/20/20 09/21/20 09/22/20 09/23/20 23:59 23:59 23:59 23:59 Intake Total 50 570 250 Output Total 41460 Balance 50 -07444 250 Meds/Results Medications: Active Medications Generic Name Dose Route Start Last Admin Trade Name Freq PRN Reason Stop Dose Admin Acetaminophen 650 mg 09/21/20 21:12 Acetaminophen 325 Mg Tablet PO Q6H PRN Mild Pain (1-3) or Fever Hydrocodone Bitart/Acetaminophen 1 tab 09/21/20 21:14 09/23/20 09:03 Hydrocodone/Acetaminophen (*Crx) 5-325 Mg Tablet PO 1 tab Q6H PRN Administration Pain Rated 4-6 Amiodarone HCl 200 mg 09/22/20 21:00 09/23/20 09:01 Amiodarone Hcl 200 Mg Tablet PO 200 mg Q12HR BRENDON Administration Benzocaine 1 lozenge 09/23/20 09:17 Benzocaine/Menthol (*Bkc) 18 Ea Lozenge PO PRN PRN Sore Throat Cinacalcet 30 mg 09/23/20 09:00 09/23/20 09:02 Cinacalcet 30 Mg Tablet PO 30 mg DAILY BRENDON Administration Epoetin Tyler-epbx 10,000 units 09/22/20 08:25 09/23/20 07:25 Epoetin Tyler-Epbx 10,000 Units/Ml Vial IV PUSH Not Given MOWEFR BRENDON Gabapentin 100 mg 09/22/20 21:00 09/22/20 21:29 Gabapentin 100 Mg Capsule BY MOUTH 100 mg HS BRENDON Administration Hyoscyamine 0.125 mg 09/21/20 21:14 09/23/20 00:48 Hyoscyamine Sulfate 0.125 Mg Tablet PO 0.125 mg Q4H PRN Administration Bladder Spasm Levothyroxine Sodium 125 mcg 09/23/20 06:30 09/23/20 03:25 Levothyroxine Sodium 125 Mcg Tablet BY MOUTH Not Given DAILY@0630 [facility] Sevelamer Carbonate 800 mg 09/22/20 16:30 09/23/20 03:26 Sevelamer Carbonate 800
[2020-09-23] MEDS: SEVELAMER CARBONATE 800 MG TABLET PO (17:29)
[2020-09-23] MEDS: BENZOCAINE/MENTHOL (*BKC) 18 EA LOZENGE 1 LOZENGE PO (20:14)
[2020-09-23] MEDS: GABAPENTIN 100 MG CAPSULE BY MOUTH (20:15)
[2020-09-24] VITALS (20 sets, daily range): BP systolic 98–128; BP diastolic 47–63; PULSE 60–65; RESP 16–18; TEMP 36.6–37; O2SAT 98; BMI 22.4
[2020-09-24] MEDS: LEVOTHYROXINE SODIUM 125 MCG TABLET BY MOUTH (05:46)
[2020-09-24] MEDS: SEVELAMER CARBONATE 800 MG TABLET PO (05:46)
--- NOTE | 2020-09-24 06:44 | WPDUROPN2 ---
Progress Note: A&P Assessment and Plan (1) Urinary retention: Code(s): R33.9 - Retention of urine, unspecified Status: Acute (2) Benign prostatic hyperplasia: Code(s): N40.0 - Benign prostatic hyperplasia without lower urinary tract symptoms Status: Acute Assessment and Plan: Small suprapubic catheter inserted by radiologist yesterday appears to be draining well. Over time we can gradually increase the size of the suprapubic catheter. Will plan first catheter change in approximately 3-4 weeks. Subjective Subjective Date/Time Seen: 09/24/20 06:44 Small s/p catheter place via radiologists yesterday -> draining slightly blood tinged urine. Review of Systems Cardiovascular: Cardiovascular: Denies chest pain, Denies lightheadedness, Denies palpitations and Denies dyspnea Respiratory: Respiratory: Denies dyspnea Gastrointestinal: Gastrointestinal: Denies diarrhea, Denies nausea and Denies vomiting Genitourinary: Genitourinary: Denies hematuria and Denies dysuria Endocrine: Endocrine: Denies palpitations Exam Const: General: no acute distress Resp: Effort & Inspection: normal respiratory effort GI: Inspection: non-distended GI Palp: No abdominal tenderness and No Guarding due to palpation present (GI) Auscultation: normal bowel sounds Objective Data Vital Signs Vital Signs: Vital Signs - 24 hr 09/23/20 08:00 09/23/20 09:01 09/23/20 14:00 Temperature 97.9 F Pulse Rate 78 78 70 Respiratory Rate 18 16 Blood Pressure 126/59 L Pulse Oximetry 95 97 09/23/20 14:01 09/23/20 20:15 09/23/20 21:18 Temperature 98.6 F Pulse Rate 69 62 62 Respiratory Rate 18 18 Blood Pressure 132/64 105/55 L Pulse Oximetry 95 96 09/24/20 05:42 Temperature 97.8 F Pulse Rate 62 Respiratory Rate 18 Blood Pressure 115/63 Pulse Oximetry 98 Intake/Output Intake/Output: Intake & Output 09/21/20 09/22/20 09/23/20 09/24/20 23:59 23:59 23:59 23:59 Intake Total 50 570 590 300 Output Total 96994 700 200 Balance 50 -92653 -110 100 Meds/Results Medications: Active Medications Generic Name Dose Route Start Last Admin Trade Name Freq PRN Reason Stop Dose Admin Acetaminophen 650 mg 09/21/20 21:12 Acetaminophen 325 Mg Tablet PO Q6H PRN Mild Pain (1-3) or Fever Hydrocodone Bitart/Acetaminophen 1 tab 09/21/20 21:14 09/23/20 09:03 Hydrocodone/Acetaminophen (*Crx) 5-325 Mg Tablet PO 1 tab Q6H PRN Administration Pain Rated 4-6 Amiodarone HCl 200 mg 09/22/20 21:00 09/23/20 20:15 Amiodarone Hcl 200 Mg Tablet PO 200 mg Q12HR BRENDON Administration Benzocaine 1 lozenge 09/23/20 09:17 09/23/20 20:14 Benzocaine/Menthol (*Bkc) 18 Ea Lozenge PO 1 lozenge PRN PRN Administration Sore Throat Cinacalcet 30 mg 09/23/20 09:00 09/23/20 09:02 Cinacalcet 30 Mg Tablet PO 30 mg DAILY BRENDON Administration Epoetin Tyler-epbx 10,000 units 09/22/20 08:25 09/23/20 07:25 Epoetin Tyler-Epbx 10,000 Units/Ml Vial IV PUSH Not Given MOWEFR BRENDON Gabapentin 100 mg 09/22/20 21:00 09/23/20 20:15 Gabapentin 100 Mg Capsule BY MOUTH 100 mg HS BRENDON Administration Hyoscyamine 0.125 mg 09/21/20 21:14 09/23/20 00:48 Hyoscyamine Sulfate 0.125 Mg Tablet PO 0.125 mg Q4H PRN Administration Bladder Spasm Albumin Human 50 mls @ 999 mls/hr 09/24/20 05:47 Albutein IVPB 10/24/20 05:48 Q10M PRN HYPOTENSION Sodium Chloride 1,000 mls @ 999 mls/hr 09/24/20 05:47 Normal Saline Iv IV CONT 09/24/20 06:47 .Q1H1M ONE Levothyroxine Sodium 125 mcg 09/23/20 06:30 09/24/20 05:46 Levothyroxine Sodium 125 Mcg Tablet BY MOUTH 125 mcg DAILY@0630 BRENDON Administration Sevelamer Carbonate 800 mg 09/22/20 16:30 09/24/20 05:46 Sevelamer Carbonate 800 Mg Tablet PO 800 mg AC BRENDON Administration Vitamin B Complex/Folic Acid 1 cap 09/23/20 09:00 09/23/20 09:02 Vitamin B Cmplx/Vit C/Folic Ac 1
[2020-09-24] MEDS: AMIODARONE HCL 200 MG TABLET PO (08:52)
[2020-09-24] MEDS: CINACALCET 30 MG TABLET PO (08:52)
[2020-09-24] MEDS: VITAMIN B CMPLX/VIT C/FOLIC AC 1 CAPSULE 1 CAP PO (08:52)
--- NOTE | 2020-09-24 11:54 | PM.PNNEP ---
Progress Note: A&P Assessment and Plan (1) End-stage renal disease on hemodialysis: Code(s): N18.6 - End stage renal disease; Z99.2 - Dependence on renal dialysis Status: Chronic Assessment and Plan: HD today and continue M/W/F schedule while hospitalized electrolytes, volume status, and clearance appear acceptable (2) Urinary retention: Code(s): R33.9 - Retention of urine, unspecified Status: Acute Assessment and Plan: s/p suprapubic catheter yesterday by IR Urology following as well (3) Paroxysmal atrial fibrillation: Code(s): I48.0 - Paroxysmal atrial fibrillation Status: Chronic Assessment and Plan: rate control strategy on anticoagulation (was on hold for procedure yesterday) (4) Hypertension: Code(s): I10 - Essential (primary) hypertension Status: Chronic Assessment and Plan: well controlled at this time follow trend of hemodynamic (5) Erythropoietin deficiency anemia: Code(s): D63.1 - Anemia in chronic kidney disease Status: Chronic Assessment and Plan: due to ESRD Epogen with HD follow H/H (6) Renal osteodystrophy: Code(s): N25.0 - Renal osteodystrophy Status: Acute Assessment and Plan: calcium and phosphorus stable follow trend Will continue to follow. Subjective Date/time seen: 09/24/20 11:54 Tolerating dialysis at the time of my visit (seen on HD at ~ 11:50AM); sleeping comfortably when seen; no apparent issues or problems overnight or earlier this AM; s/p post placement of suprapubic catheter by IR yesterday and tolerated this procedure as well. Exam Narrative: Exam Narrative: General: WD/WN male in NAD Heart: normal S1 and S2; no rub Lungs: clear to auscultation Abdomen: soft, nontender, nondistended, positive bowel sounds Extremities: no cyanosis or clubbing; no edema Skin: warm and dry Objective Data Vital Signs Vital Signs: Vital Signs Temp Pulse Resp BP Pulse Ox 09/24/20 10:55 36.8 C 64 16 110/57 L 09/24/20 08:52 64 09/24/20 08:00 64 18 98 09/24/20 05:42 36.6 C 62 18 115/63 98 09/23/20 21:18 37.0 C 62 18 105/55 L 96 09/23/20 20:15 62 09/23/20 14:01 69 18 132/64 95 09/23/20 14:00 36.6 C 70 16 126/59 L 97 Intake/Output Intake/Output: Intake & Output 09/21/20 09/22/20 09/23/20 09/24/20 23:59 23:59 23:59 23:59 Intake Total 50 570 590 540 Output Total 75291 700 200 Balance 50 -35901 -110 340 Meds/Results Medications: Active Medications Generic Name Dose Route Start Last Admin Trade Name Freq PRN Reason Stop Dose Admin Acetaminophen 650 mg 09/21/20 21:12 Acetaminophen 325 Mg Tablet PO Q6H PRN Mild Pain (1-3) or Fever Hydrocodone Bitart/Acetaminophen 1 tab 09/21/20 21:14 09/23/20 09:03 Hydrocodone/Acetaminophen (*Crx) 5-325 Mg Tablet PO 1 tab Q6H PRN Administration Pain Rated 4-6 Amiodarone HCl 200 mg 09/22/20 21:00 09/24/20 08:52 Amiodarone Hcl 200 Mg Tablet PO 200 mg Q12HR BRENDON Administration Benzocaine 1 lozenge 09/23/20 09:17 09/23/20 20:14 Benzocaine/Menthol (*Bkc) 18 Ea Lozenge PO 1 lozenge PRN PRN Administration Sore Throat Cinacalcet 30 mg 09/23/20 09:00 09/24/20 08:52 Cinacalcet 30 Mg Tablet PO 30 mg DAILY BRENDON Administration Epoetin Tyler-epbx 10,000 units 09/22/20 08:25 09/23/20 07:25 Epoetin Tyler-Epbx 10,000 Units/Ml Vial IV PUSH Not Given MOWEFR BRENDON Gabapentin 100 mg 09/22/20 21:00 09/23/20 20:15 Gabapentin 100 Mg Capsule BY MOUTH 100 mg HS BRENDON Administration Hyoscyamine 0.125 mg 09/21/20 21:14 09/23/20 00:48 Hyoscyamine Sulfate 0.125 Mg Tablet PO 0.125 mg Q4H PRN Administration Bladder Spasm Albumin Human 50 mls @ 999 mls/hr 09/24/20 05:47 Albutein IVPB 10/24/20 05:48 Q10M PRN HYPOTENSION Levothyroxine Sodium 125 mcg 09/23/20 06:30
--- NOTE | 2020-09-24 14:44 | PM.DS ---
DS: Admitting Diagnosis Admitting Diagnosis Admitting Diagnosis: Urethral obstruction DS: Discharge Diagnosis Discharge Diagnosis (1) Urethral stricture: Code(s): N35.919 - Unspecified urethral stricture, male, unspecified site Status: Acute Assessment and Plan: Patient had scheduled cystoscopy for 09/21. A retrograde urethrogram performed and showed contrast filling the penile and bulbar urethra and then stopping. Cystoscope noted significant scarring at the area of the membranous urethra without any contrast advancing past this area. After multiple attempts to pass a wire, the procedure was aborted. Apixaban was held. Patient was admitted and interventional radiology placed a suprapubic catheter 09/23/20. Patient tolerated the procedure well. (2) Urinary retention: Code(s): R33.9 - Retention of urine, unspecified Status: Acute Assessment and Plan: Despite being on dialysis for well over a decade, patient still urinates between 200 - 400 mL a day. Unfortunately he is having issues with retention related to the obliterated urethra and required a suprapubic catheter as mentioned above. (3) Chronic anemia: Code(s): D64.9 - Anemia, unspecified Status: Acute Assessment and Plan: Hemoglobin 11.7 on admission but dropped to 9-10 but since remained stable. Some of this related to recent procedure with penile bleeding. Chronic anemia related to his ESRD. (4) Paroxysmal atrial fibrillation: Code(s): I48.0 - Paroxysmal atrial fibrillation Status: Chronic Assessment and Plan: HR remained stable. We continued amiodarone. We requested records from his recent hospitalization but none were forth coming. We held Eliquis until SP catheter was placed. Resume at discharge. (5) Coronary artery disease: Code(s): I25.10 - Atherosclerotic heart disease of [place] coronary artery without angina pectoris Status: Acute Assessment and Plan: CAD s/p CABG x3v in 2008. Patient reports having a stent placed sometime within the last week but Plavix not listed on his home med list. He states he had to have laser therapy to his coronary arteries and stents placed. He was given Amio 200mg BID. Old records requested but none forth coming from his supervisor public health nursing, Dr. Declan Branch, at [facility]. Patient to continue his home medications after discharge and call Dr Branch if there are any questions. (6) End-stage renal disease on hemodialysis: Code(s): N18.6 - End stage renal disease; Z99.2 - Dependence on renal dialysis Status: Acute Assessment and Plan: Patient missed HD on 09/21 but had a treatement on 09/22/20 since he appeared mildly fluid overloaded. We used HD to control fluid status. Nephrology followed along. (7) Hypertension: Code(s): I10 - Essential (primary) hypertension Status: Chronic Assessment and Plan: Blood pressures reviewed and remained well controlled. Not on anti-HTN medications per se but does take Lasix. (8) Adult hypothyroidism: Onset Date: 02/03/13 Code(s): E03.9 - Hypothyroidism, unspecified Status: Acute Assessment and Plan: TSH normal. We ontinued levothyroxine. DS: Summary Hospital Course Reason for hospitalization: 85yo male with ESRD and pAFib here for urethral obliteration causing urine retention. Please see H&P for details Hospital Course: Please see above for details of hospital course Status at Discharge Cognitive/behavioral status at discharge: stable Time Spent with Patient Time attestation: Total time spent providing and/or coordinating discharge services: 35 minutes Time spent: Greater than 30 minutes Exam Narrative: Exam Narrative: No problems overnight. Slpet well. 'Feels great'. No CP or SOB. no abd pain. Eating okay. Requesitng discharge. AF 98.2 107/52 60 16 98% Gen - NARD lying semi recumbent
--- NOTE | 2020-09-25 08:07 | PCNSR ---
Addendum entered by Patricia Lopes RD, LDN 09/25/20 08:08: Argenis Sage-student name. Reviewed documentation from 09/24/20. Original Note: On 09/25/20, the student, [ ], provided care and completed [facility] hospital documentation on this patient. I have reviewed the student's documentation and agree with the findings.
== END 2020-09-24 17:20 | disposition home or self-care (01) | DRG 697 ==
LOC: ANH3MEDSUR 19:28
PROVIDERS: Anesthesiology; Internal Medicine Nephrology; Physician Assistant; Urology; Admitting Provider Family Medicine; PCP Internal Medicine; Visit Provider Internal Medicine
PROC: 0TJB8ZZ Inspection of Bladder, Via Natural or Artificial Opening Endoscopic (ICD-10-PCS; CPT 52352; principal; 2020-09-21 13:30)
DX: N35.919 Unspecified urethral stricture, male, unspecified site (principal); N18.6 End stage renal disease; I12.0 Hypertensive chronic kidney disease with stage 5 chronic kidney disease or end stage renal disease; I48.0 Paroxysmal atrial fibrillation; Z79.01 Long term (current) use of anticoagulants; I25.10 Atherosclerotic heart disease of native coronary artery without angina pectoris; E03.9 Hypothyroidism, unspecified; D64.9 Anemia, unspecified; N40.0 Benign prostatic hyperplasia without lower urinary tract symptoms; N25.0 Renal osteodystrophy
CPT/HCPCS: 36415; 51610; 74450; 75989; 80048; 80053; 80069; 82607; 82746; 83735; 84443; 85025; 85027; 85610; 85730; 86706; 87040; 87340; 93005; A9270; C1729; C1758; C1769; G0257; J0690; J2704; J3010; J7030; J7040; Q9966

== ENCOUNTER 2020-10-14 11:50 | Emergency (ER) | payer MEDICARE, BC, SELFPAY ==
[2020-10-14 11:56] VITALS: BP 115/60; PULSE 60; RESP 20; TEMP 36.3; O2SAT 100
--- NOTE | 2020-10-14 12:16 | ED.MALEGU ---
HPI - Male Genitourinary General Chief complaint: Urogenital-Male Stated complaint: needs bladder bag irrigated Time Seen by Provider: 10/14/20 12:05 Source: patient Mode of arrival: ambulatory Limitations: no limitations History of Present Illness HPI Narrative: Rico Patel is an 85 yo male with an ICD, heart failure, chronic anticoagulation, CKD 5,HTN, dialysis 3 times a week, who comes to [facility] because he is unable to irrigate the existing suprapubic bladder catheter that has been placed. Unable to reach home health. Got increasing bleeding into the catheter and leg bag over the last week and needs a bladder irrigation On chronic anticoagulation, has a pacemaker, he is on dialysis, he has been in [facility] home care but when they were called, they have discharged him back in April. He has bright red blood in his leg bag and catheter and we were unable to unlock the connector at the end of the catheter Related Data Home Medications Medication Instructions Recorded Confirmed cinacalcet 30 mg PO DAILY 01/20/19 10/14/20 furosemide 80 mg PO DAILY 01/20/19 10/14/20 Renal Caps 1 cap PO DAILY 02/02/19 10/14/20 Eliquis 2.5 mg PO BID 09/21/20 10/14/20 amiodarone [Pacerone] 200 mg PO BID 09/21/20 10/14/20 Allergies Allergy/AdvReac Type Severity Reaction Status Date / Time Penicillins Allergy Severe KIDNEY Verified 10/14/20 12:27 DAMAGE, RASH Sulfa (Sulfonamide AdvReac Unknown Nausea and Verified 10/14/20 12:27 Antibiotics) Vomiting Review of Systems Review of Systems: CONSTITUTIONAL: Denies fever, chills, sweats. EYES: Denies visual changes, redness, discharge. ENT: Denies rhinorrhea, congestion, sore throat, otalgia. CARDIOVASCULAR: Denies chest pain, palpitations, edema. RESPIRATORY: Denies dyspnea, wheezing, cough GASTROINTESTINAL: Denies abdominal pain, nausea, vomiting, diarrhea. GENITOURINARY: Denies dysuria, hematuria, abnormal discharge-CKD 5, has indwelling urinary bladder that needs to be irrigated SKIN: Denies rash or itching. NEUROLOGIC: Denies numbness, or focal weakness. PSYCHIATRIC: Denies anxiety or depression. [facility] Past Medical History Medical History Adult hypothyroidism (02/03/13) Arthritis Benign prostatic hyperplasia Chronic anemia Coronary artery disease History of bypass and stents. Patient of Dr. Declan Branch at [facility]. End-stage renal disease on hemodialysis Dialysis days Thursday, Thursday, Thursday. Erythropoietin deficiency anemia Gastroesophageal reflux disease Glaucoma Gout History of Helicobacter pylori infection Hypertension Macular degeneration Monoclonal gammopathy of undetermined significance Neuropathy Pacemaker Paroxysmal atrial fibrillation Renal osteodystrophy Surgical History Surgical History History of aortic valve replacement with bioprosthetic valve (~08/2008) History of bilateral cataract extraction History of bladder surgery History of coronary artery bypass graft x 3 (~08/2008) History of cystoscopy History of pacemaker (~04/2018) History of tonsillectomy History of total right knee replacement (~2013) History of transurethral resection of prostate Family History Family History Sibling Family history of Alzheimer's disease Family history of throat cancer Mother Family history of malignant neoplasm of breast in first degree relative Family history of heart disease in male family member before age 55 Patient's mother is Family history of cardiovascular disease Father Family history of heart disease in male family member before age 55 Patient's father is Family history of cardiovascular disease Other Family history of malignant neoplasm of male breast Social History Social History (Reviewed 09/22/20 @
== END 2020-10-14 12:20 | disposition short-term general hospital (02) ==
PROVIDERS: Emergency Provider Nurse Practitioner; PCP Internal Medicine
DX: R31.0 Gross hematuria (principal); E03.9 Hypothyroidism, unspecified; M19.90 Unspecified osteoarthritis, unspecified site; D64.9 Anemia, unspecified; N40.0 Benign prostatic hyperplasia without lower urinary tract symptoms; I13.2 Hypertensive heart and chronic kidney disease with heart failure and with stage 5 chronic kidney disease, or end stage renal disease; N18.5 Chronic kidney disease, stage 5; I50.9 Heart failure, unspecified; Z99.2 Dependence on renal dialysis; I25.10 Atherosclerotic heart disease of native coronary artery without angina pectoris; Z95.5 Presence of coronary angioplasty implant and graft; K21.9 Gastro-esophageal reflux disease without esophagitis; H40.9 Unspecified glaucoma; M10.9 Gout, unspecified; H35.30 Unspecified macular degeneration; G62.9 Polyneuropathy, unspecified; Z95.0 Presence of cardiac pacemaker; I48.0 Paroxysmal atrial fibrillation; Z95.2 Presence of prosthetic heart valve; Z98.42 Cataract extraction status, left eye; Z98.41 Cataract extraction status, right eye; Z96.651 Presence of right artificial knee joint; Z87.891 Personal history of nicotine dependence
CPT/HCPCS: 99212; G0463

== ENCOUNTER 2020-10-14 13:03 | Inpatient (IN) | payer MEDICARE, BC, SELFPAY ==
[2020-10-14] VITALS (9 sets, daily range): BP systolic 114–141; BP diastolic 55–71; PULSE 60–64; RESP 18–21; TEMP 36.3–36.4; O2SAT 95–100; BMI 21.4
[2020-10-14 13:39] LABS: Basophils Absolute Auto 0.1 K/mm3 (0.0-0.1); Basophils Percent Auto 0.9 % (0.2-1.2); Eosinophils Absolute Auto 0.3 K/mm3 (0-0.3); Eosinophils Percent Auto 5.3 % (0-4.4); Hemoglobin 11.3 g/dL (14.0-18.0); Immature Granulocyte Absolute 0.02 K/mm3 (0.00-0.031); Immature Granulocyte Percent A 0.4 % (0-0.5); Lymphocytes Absolute Auto 0.93 K/mm3 (0.9-3.2); Lymphocytes Percent Auto 17.1 % (18.3-44.2); Mean Corpuscular HGB Conc 32.3 g/dl (32-36); Mean Corpuscular Hemoglobin 33.3 pg (26-34); Mean Corpuscular Volume 103.2 fl (80-100); Mean Platelet Volume 9.5 fl (7.4-10.4); Monocytes Absolute Auto 0.4 K/mm3 (0.1-0.6); Monocytes Percent Auto 6.8 % (2.6-8.5); Neutrophils Absolute Auto 3.8 K/mm3 (1.3-6.7); Neutrophils Percent Auto 69.5 % (45.5-73.1); Platelet Count Result 167 k/mm3 (150-375); Red Blood Count 3.39 M/mm3 (4.6-6.20); Red Cell Distribution Width 15.1 % (11.5-14.5); White Blood Count 5.4 K/mm3 (4.5-10.0)
[2020-10-14 13:44] LABS: Add Urine Microscopic? YES; Appearance Urine Cloudy (Clear); Bacteria Urine Trace /hpf; Bilirubin Urine Negative (Negative); Blood Urine 3+ (Negative); Color Urine Amber (Yellow); Glucose Urine UA 1+ mg/dL (Negative); Ketones Urine Negative (Negative); Leukocyte Esterase Ur Trace LEU/UL (Negative); Nitrate Urine Negative (Negative); Protein Urine 3+ mg/dL (Negative); RBC Urine >75 /hpf (0-2); Specific Grav Ur 1.014 (1.001-1.035); Urobilinogen Urine Negative mg/dL (<2.0); WBC Urine >75 /hpf
[2020-10-14 13:50] LABS: Alanine Aminotransferase 9 U/L (4-50); Albumin Level 3.9 g/dL (3.5-5.1); Alkaline Phosphatase 83 U/L (38-126); Anion Gap 10 mmol/L (8-16); Aspartate Amino Transferase 29 U/L (17-59); Bilirubin,Total 1.4 mg/dL (0.2-1.3); Blood Urea Nitrogen 42 mg/dL (9-20); Calcium 9.3 mg/dL (8.4-10.2); Carbon Dioxide 31 mmol/L (22-30); Chloride 91 mmol/L (98-107); Estimated CRCL calculation 11 ml/min; Estimated Glomerular Filt Rate 14; Glucose 94 mg/dL (65-110); Potassium 4.4 mmol/L (3.4-5.0); Sodium 132 mmol/L (137-145)
[2020-10-14] MEDS: SODIUM CHLORIDE 0.9% IV 500 ML 999 ML IV CONT (15:30)
--- NOTE | 2020-10-14 16:44 | PM.IMHP ---
H&P: HPI History of Present Illness Date/Time: 10/14/20 16:44 pleasant 85-year-old gentleman with multiple comorbidities including coronary artery disease status post CABG, atrial fibrillation on anticoagulation, end-stage renal disease on dialysis Thursday, hypothyroidism, hypertension, MGUS, BPH, chronic anemia, presence of suprapubic catheter presents to the emergency room with chief complaint of ongoing hematuria since discharge 2 weeks ago. Patient states that he has alarmed because the bleeding has not stopped and he sought medical attention. He denies fever, chills, chest pain, shortness of breath, headache, dizziness, lightheadedness, near syncopal episodes. He requests that his suprapubic catheter be flushed but he is unsure of how to do this himself. He denies any suprapubic or pelvic pain. His catheter is patent and urine is draining although noted to be with gross hematuria. Patient reassured that his lab values look stable and are very comparable to the last time he was hospitalized here. Per last urologist note patient to have suprapubic catheter size changed in 2 more weeks from now. Patient is on blood thinner at this time will admit for hemodialysis tomorrow and urology consultation per ERrequest Chief Complaint: gross hematuria Review of Systems Review of Systems: 14 point review systems negative except for above mentioned HPI PMFSH Past Medical History Medical History Adult hypothyroidism (02/03/13) Arthritis Benign prostatic hyperplasia Chronic anemia Coronary artery disease History of bypass and stents. Patient of Dr. Declan Branch at [facility]. End-stage renal disease on hemodialysis Dialysis days Thursday, Thursday, Thursday. Erythropoietin deficiency anemia Gastroesophageal reflux disease Glaucoma Gout History of Helicobacter pylori infection Hypertension Macular degeneration Monoclonal gammopathy of undetermined significance Neuropathy Pacemaker Paroxysmal atrial fibrillation Renal osteodystrophy Surgical History Surgical History History of aortic valve replacement with bioprosthetic valve (~08/2008) History of bilateral cataract extraction History of bladder surgery History of coronary artery bypass graft x 3 (~08/2008) History of cystoscopy History of pacemaker (~04/2018) History of tonsillectomy History of total right knee replacement (~2013) History of transurethral resection of prostate Family History Family History Sibling Family history of Alzheimer's disease Family history of throat cancer Mother Family history of malignant neoplasm of breast in first degree relative Family history of heart disease in male family member before age 55 Patient's mother is Family history of cardiovascular disease Father Family history of heart disease in male family member before age 55 Patient's father is Family history of cardiovascular disease Other Family history of malignant neoplasm of male breast Social History Social History Social History: Surrogate decision maker: Jessie Candelaria, . Code status: Full code. Smoking packs per day: 4 Smoking cigarettes per day: 80.0 Years smoked: 25 Smoking pack-years: 100.00 Smoking status: Former smoker Tobacco type: cigarettes Second hand tobacco smoke exposure: No Smoking end date: 02/25/83 Alcohol intake: never Alcohol use details: Social use, maybe 2 beers a month. Substance use: never Additional living arrangements comments: The patient lives in [place] with his Jessie. Additional occupation/education comments: Retired. Gender identity (if verbalized by the patient): Male Spiritual care concerns: No
--- NOTE | 2020-10-14 16:58 | PC.NURSE ---
ORDERED DINNER TRAY
--- NOTE | 2020-10-14 17:16 | ED.GENADULT ---
HPI - General Adult General Chief complaint: Urogenital-Male Stated complaint: bladder issues Time Seen by Provider: 10/14/20 15:02 Source: patient and RN notes reviewed Mode of arrival: ambulatory Limitations: no limitations History of Present Illness HPI narrative: Patient is an 85-year-old male who presents with hematuria also noting some lightheaded and dizziness with standing patient has had a new indwelling suprapubic catheter that was placed due to urethral stricture he is followed by nephrology and urology for this was recently placed on nitrofurantoin after being on a month-long course of antibiotics. Patient on arrival does not appear distressed Related Data Home Medications Medication Instructions Recorded Confirmed cinacalcet 30 mg PO DAILY 01/20/19 10/14/20 furosemide 80 mg PO DAILY 01/20/19 10/14/20 Renal Caps 1 cap PO DAILY 02/02/19 10/14/20 Eliquis 2.5 mg PO BID 09/21/20 10/14/20 amiodarone [Pacerone] 200 mg PO BID 09/21/20 10/14/20 Allergies Allergy/AdvReac Type Severity Reaction Status Date / Time Penicillins Allergy Severe KIDNEY Verified 10/14/20 12:27 DAMAGE, RASH Sulfa (Sulfonamide AdvReac Unknown Nausea and Verified 10/14/20 12:27 Antibiotics) Vomiting Review of Systems Review of Systems: All systems reviewed & are unremarkable except as noted in HPI and below PMFSH Past Medical History Medical History Adult hypothyroidism (02/03/13) Arthritis Benign prostatic hyperplasia Chronic anemia Coronary artery disease History of bypass and stents. Patient of Dr. Declan Branch at [facility]. End-stage renal disease on hemodialysis Dialysis days Thursday, Thursday, Thursday. Erythropoietin deficiency anemia Gastroesophageal reflux disease Glaucoma Gout History of Helicobacter pylori infection Hypertension Macular degeneration Monoclonal gammopathy of undetermined significance Neuropathy Pacemaker Paroxysmal atrial fibrillation Renal osteodystrophy Surgical History Surgical History History of aortic valve replacement with bioprosthetic valve (~08/2008) History of bilateral cataract extraction History of bladder surgery History of coronary artery bypass graft x 3 (~08/2008) History of cystoscopy History of pacemaker (~04/2018) History of tonsillectomy History of total right knee replacement (~2013) History of transurethral resection of prostate Family History Family History Sibling Family history of Alzheimer's disease Family history of throat cancer Mother Family history of malignant neoplasm of breast in first degree relative Family history of heart disease in male family member before age 55 Patient's mother is Family history of cardiovascular disease Father Family history of heart disease in male family member before age 55 Patient's father is Family history of cardiovascular disease Other Family history of malignant neoplasm of male breast Social History Social History Social History: Surrogate decision maker: Jessie Candelaria, . Code status: Full code. Smoking packs per day: 0.5 Smoking cigarettes per day: 10.0 Years smoked: 25 Smoking pack-years: 12.50 Smoking status: Former smoker Tobacco type: cigarettes Second hand tobacco smoke exposure: No Smoking end date: 02/25/83 Alcohol intake: never Alcohol use details: Social use, maybe 2 beers a month. Substance use: never Additional living arrangements comments: The patient lives in [place] with his Jessie. Additional occupation/education comments: Retired. Gender identity (if verbalized by the patient): Male Spiritual care concerns: No Agree to blood products: Yes Exam
[2020-10-14] MEDS: FAMOTIDINE 20 MG/2 ML VIAL IV PUSH (20:43)
[2020-10-14] MEDS: DOCUSATE SODIUM 100 MG CAPSULE PO (20:43)
--- NOTE | 2020-10-14 22:12 | PC.NURSE ---
This patient, Rico Abreu, was admitted to 2 Medical Room 260-. Patient/family oriented to hospital policies and general routines including ID bracelet, bed and alarms, visiting hours, pain management, procedures, bathroom and other care routines, personal items, smoking policy, room service/diet, and visiting hours. Information on how to activate the Rapid Response Team has been discussed. Patient/Family are encouraged to report perceived risks to care and to ask questions if they do not understand what they are told or what they should do.
[2020-10-15] VITALS (13 sets, daily range): BP systolic 108–127; BP diastolic 44–62; PULSE 60–70; RESP 18–20; TEMP 36.4–37; O2SAT 98–99
[2020-10-15] MEDS: GABAPENTIN 100 MG CAPSULE PO (00:28)
[2020-10-15] MEDS: LEVOTHYROXINE SODIUM 125 MCG TABLET PO (06:12)
[2020-10-15 06:22] LABS: Basophils Absolute Auto 0.1 K/mm3 (0.0-0.1); Basophils Percent Auto 1.2 % (0.2-1.2); Eosinophils Absolute Auto 0.6 K/mm3 (0-0.3); Eosinophils Percent Auto 12.4 % (0-4.4); Hematocrit 30.5 % (42.0-52.0); Hemoglobin 9.8 g/dL (14.0-18.0); Immature Granulocyte Absolute 0.02 K/mm3 (0.00-0.031); Immature Granulocyte Percent A 0.4 % (0-0.5); Lymphocytes Absolute Auto 1.07 K/mm3 (0.9-3.2); Lymphocytes Percent Auto 21.4 % (18.3-44.2); Mean Corpuscular HGB Conc 32.1 g/dl (32-36); Mean Corpuscular Hemoglobin 33.7 pg (26-34); Mean Corpuscular Volume 104.8 fl (80-100); Mean Platelet Volume 9.8 fl (7.4-10.4); Monocytes Absolute Auto 0.5 K/mm3 (0.1-0.6); Monocytes Percent Auto 9.8 % (2.6-8.5); Neutrophils Absolute Auto 2.8 K/mm3 (1.3-6.7); Neutrophils Percent Auto 54.8 % (45.5-73.1); Platelet Count Result 140 k/mm3 (150-375); Red Blood Count 2.91 M/mm3 (4.6-6.20); Red Cell Distribution Width 14.8 % (11.5-14.5)
[2020-10-15 06:47] LABS: Albumin Level 2.7 g/dL (3.5-5.1); Alkaline Phosphatase 56 U/L (38-126); Anion Gap 4 mmol/L (8-16); Aspartate Amino Transferase 18 U/L (17-59); Blood Urea Nitrogen 48 mg/dL (9-20); Calcium 8.5 mg/dL (8.4-10.2); Carbon Dioxide 30 mmol/L (22-30); Chloride 97 mmol/L (98-107); Estimated CRCL calculation 10 ml/min; Estimated Glomerular Filt Rate 12; Glucose 76 mg/dL (65-110); Sodium 131 mmol/L (137-145)
--- NOTE | 2020-10-15 08:07 | WPDURCON ---
Assessment and Plan Assessment and plan (1) Benign prostatic hyperplasia: Code(s): N40.0 - Benign prostatic hyperplasia without lower urinary tract symptoms Status: Acute (2) Urethral stricture: Code(s): N35.919 - Unspecified urethral stricture, male, unspecified site Status: Acute (3) Suprapubic catheter: Code(s): Z93.59 - Other cystostomy status Status: Acute Assessment and Plan: Appropriately positioned and appropriately draining suprapubic catheter which cannot be changed for another 2 weeks until a mature tract is developed. Would not recommend any other intervention at this critical access hospital. Urology Consult Note HPI Date Seen: 10/15/20 Requesting Physician: Deborah Pendleton MD Primary Care Provider: Shaheen Whitehead DO Consult Narrative Narrative: Rico Abreu is a 85 year old male well known to our practice with long history of BPH. and she did well with medication but approximately 2-3 weeks ago presented with urinary retention. Attempt with cystoscopy to place urethral catheter was unsuccessful because of a dense bulbous / membranous urethral stricture. A suprapubic catheter was placed at that time. The patient presents to the ER yesterday with complaints of ongoing hematuria. He has had no trouble with drainage from the small suprapubic catheter placed by radiologist. When questioned this morning he says the catheter has been draining freely but he has noticed some blood tinging to it. He had wanted to irrigated himself was not certain how to undo the stopcock. Review of Systems Cardiovascular: Cardiovascular: Denies chest pain, Denies lightheadedness, Denies palpitations and Denies dyspnea Respiratory: Respiratory: Denies dyspnea Gastrointestinal: Gastrointestinal: Denies diarrhea, Denies nausea and Denies vomiting Genitourinary: Genitourinary: Denies hematuria and Denies dysuria Endocrine: Endocrine: Denies palpitations PMFSH Past Medical History Medical History Adult hypothyroidism (02/03/13) Arthritis Benign prostatic hyperplasia Chronic anemia Coronary artery disease History of bypass and stents. Patient of Dr. Declan Branch at [facility]. End-stage renal disease on hemodialysis Dialysis days Thursday, Thursday, Thursday. Erythropoietin deficiency anemia Gastroesophageal reflux disease Glaucoma Gout History of Helicobacter pylori infection Hypertension Macular degeneration Monoclonal gammopathy of undetermined significance Neuropathy Pacemaker Paroxysmal atrial fibrillation Renal osteodystrophy Surgical History Surgical History History of aortic valve replacement with bioprosthetic valve (~08/2008) History of bilateral cataract extraction History of bladder surgery History of coronary artery bypass graft x 3 (~08/2008) History of cystoscopy History of pacemaker (~04/2018) History of tonsillectomy History of total right knee replacement (~2013) History of transurethral resection of prostate Family History Family History Sibling Family history of Alzheimer's disease Family history of throat cancer Mother Family history of malignant neoplasm of breast in first degree relative Family history of heart disease in male family member before age 55 Patient's mother is Family history of cardiovascular disease Father Family history of heart disease in male family member before age 55 Patient's father is Family history of cardiovascular disease Other Family history of malignant neoplasm of male breast Social History Social History Social History: Surrogate decision maker: Jessie Abreu, . Code status: Full code. Smoking packs per day: 4 Smoking cigarettes per day:
[2020-10-15] MEDS: FUROSEMIDE 80 MG TABLET PO (09:13)
[2020-10-15] MEDS: CINACALCET 30 MG TABLET PO (09:13)
[2020-10-15] MEDS: AMIODARONE HCL 200 MG TABLET PO (09:14)
[2020-10-15] MEDS: FAMOTIDINE 20 MG/2 ML VIAL IV PUSH (09:15)
[2020-10-15] MEDS: SEVELAMER CARBONATE 800 MG TABLET PO ×2 (09:15→13:07)
[2020-10-15 09:29] LABS: Alanine Aminotransferase < 6 U/L (4-50)
--- NOTE | 2020-10-15 10:46 | PM.CNNEP ---
Assessment and Plan Assessment and plan (1) End-stage renal disease on hemodialysis: Code(s): N18.6 - End stage renal disease; Z99.2 - Dependence on renal dialysis Status: Chronic Assessment and Plan: the patient has end-stage renal disease. He gets dialysis 3 times a week. He normally gets dialysis today. He looks okay volume haro. His potassium is okay. Will order dialysis for today. He will get a 3-1/2 hour treatment on a 2 K bath and remove 1 or 2L as tolerated. (2) Benign prostatic hyperplasia: Code(s): N40.0 - Benign prostatic hyperplasia without lower urinary tract symptoms Status: Acute Assessment and Plan: Patient has longstanding benign prostatic hyperplasia. He is had blood in the urine intermittently from prostate issues. Then his urethra scarred up and was unable to pass any urine so a suprapubic catheter was placed a few months ago. It is been draining well. Now he has another episode of hematuria. Urinalysis showed both red cells and white cells. They did a urine culture to be sure there is no infection and he is on antibiotics. (3) Paroxysmal atrial fibrillation: Code(s): I48.0 - Paroxysmal atrial fibrillation Status: Chronic Assessment and Plan: The patient is anticoagulated. Is on amiodarone. His heart rate is regular now. (4) Gastroesophageal reflux disease: Code(s): K21.9 - Gastro-esophageal reflux disease without esophagitis Status: Acute Assessment and Plan: The patient has GERD. No symptoms right now. (5) Adult hypothyroidism: Onset Date: 02/03/13 Code(s): E03.9 - Hypothyroidism, unspecified Status: Acute Assessment and Plan: He gets thyroid supplement History of Present Illness Reason for Consult Consult date: 10/15/20 Chief Complaint Chief complaint: Hematuria, urinary tract infection History of Present Illness Narrative: JOANA Kong is a very pleasant 85-year-old gentleman has multiple medical problems including coronary disease, atrial fibrillation, MGUS, hypertension, BPH, suprapubic catheter because of scar tissue in his urethra, recurrent hematuria, anemia, renal osteodystrophy, hypothyroidism. the patient came in the hospital because of blood in the urine. Then the suprapubic catheter would not drain any more. He was unable to figure out how to flush it so he came to the ER. In the ER they evaluated him and felt that he needed to be admitted. The patient feels okay now. No chest pain or shortness of breath. No fevers or chills. Review of Systems Constitutional: Constitutional: Reports no additional constitutional complaints Eyes: Eyes: Reports no additional eye complaints ENT: Reports system reviewed and no additional complaints, except as documented Cardiovascular: Cardiovascular: Reports no additional cardiovascular complaints Respiratory: Respiratory: Reports no additional respiratory complaints Gastrointestinal: Gastrointestinal: Reports no additional gastrointestinal complaints Genitourinary: Genitourinary: Reports no additional male genitourinary complaints Musculoskeletal: Musculoskeletal: Reports no additional musculoskeletal complaints Integumentary/Breasts: Skin/Breast: Reports system reviewed and no additional complaints, except as docu Neurologic: Reports system reviewed and no additional complaints, except as documented Psychiatric: Psychiatric: Reports no additional psychiatric complaints Endocrine: Endocrine: Reports no additional endocrine complaints [facility] Past Medical History Medical History Adult hypothyroidism (02/03/13) Arthritis Benign prostatic hyperplasia Chronic anemia Coronary artery disease History of bypass and stents. Patient of Dr. Declan Branch at [facility]. End-stage renal disease on hemodialysis Dialysis days Thursday, Thursday, Thursday. Erythropoi
--- NOTE | 2020-10-15 13:21 | PM.DS ---
DS: Admitting Diagnosis Admitting Diagnosis hematuria DS: Discharge Diagnosis Discharge Diagnosis (1) Hematuria: Qualifiers: Hematuria type: gross Qualified Code(s): R31.0 - Gross hematuria Code(s): R31.9 - Hematuria, unspecified Status: Inactive (2) Medication induced coagulopathy: Code(s): D68.9 - Coagulation defect, unspecified; T50.905A - Adverse effect of unspecified drugs, medicaments and biological substances, initial encounter Status: Acute (3) End-stage renal disease on hemodialysis: Code(s): N18.6 - End stage renal disease; Z99.2 - Dependence on renal dialysis Status: Chronic (4) Suprapubic catheter: Code(s): Z93.59 - Other cystostomy status Status: Acute (5) Coronary artery disease: Code(s): I25.10 - Atherosclerotic heart disease of [place] coronary artery without angina pectoris Status: Acute (6) Chronic anemia: Code(s): D64.9 - Anemia, unspecified Status: Acute (7) Adult hypothyroidism: Onset Date: 02/03/13 Code(s): E03.9 - Hypothyroidism, unspecified Status: Acute (8) Paroxysmal atrial fibrillation: Code(s): I48.0 - Paroxysmal atrial fibrillation Status: Chronic (9) Hypertension: Code(s): I10 - Essential (primary) hypertension Status: Chronic (10) Hypothyroid: Code(s): E03.9 - Hypothyroidism, unspecified Status: Acute (11) Gastroesophageal reflux disease: Code(s): K21.9 - Gastro-esophageal reflux disease without esophagitis Status: Acute DS: Summary Hospital Course Hospital Course: DOS 10/15/20 12:48 Pleasant 85-year-old gentleman with multiple comorbidities including coronary artery disease status post CABG, atrial fibrillation on anticoagulation, end-stage renal disease on dialysis Thursday, hypothyroidism, hypertension, MGUS, BPH, chronic anemia, presence of suprapubic catheter presents to the emergency room with chief complaint of ongoing hematuria since discharge 2 weeks ago. Urology was consulted and patient was taught how to disconnect the port to be able to flush his catheter. Urine is more pink tinged today which he stated it was clear not been looking better. Nephrology is also talked to the patient and his scheduled for dialysis today. Patient currently has no complaints and keeps asking if he can go home. H&H is stable at 9.8 and 30.5. Patient stated all of his started whenever he broke his hip back in January of last year. And now he has also been to weight has to walk with a walker. Patient also stated that he has lots of heart issues and had to be cardioverted last week. Which he was also concerned about the bleeding since he is on a blood thinner. The bleeding has slowed down on exam in their areas within the bag are clear yellow urine. patient will be discharged after dialysis today. Patient has no complaints including chest pain, shortness of breath, nausea, vomiting, weakness or fatigue. Status at Discharge Functional status at discharge: uses cane/walker Overall status at discharge: patient is back to baseline Time Spent with Patient Time attestation: Total time spent providing and/or coordinating discharge services: 48 minutes Time spent: Greater than 30 minutes Exam Const: General: cooperative, healthy appearing, comfortable, no acute distress, well developed, alert, awake and Physically active Nutritional Appearance: average body habitus and thin Orientation/consciousness: oriented to person, oriented to place, oriented to time and patient oriented x3 Limitations: no limitations Other: malnourished appearing HENMT: General nose exam: Normal nares present Mouth: Yes moist mucous membranes Eyes: General: appearance normal, both eyes and all related structures Neck: Neck: supple and no JVD Resp: Effort & Inspection: normal respiratory effort Auscultation: clear to auscultation bilaterally Cardi
[2020-10-15] MEDS: EPOETIN ALFA-EPBX 10,000 UNITS/ML VIAL 10000 UNITS IV PUSH (17:38)
[2020-10-15 20:03] LABS: Hepatitis B Surface Antigen Negative (Negative)
[2020-10-15 20:37] LABS: Hepatitis B Surface Anti Res Positive
== END 2020-10-15 19:03 | disposition home or self-care (01) | DRG 696 ==
LOC: ANHED 17:30 → ANH2MED 21:35
PROVIDERS: Emergency Medicine Emergency Medical Services; Internal Medicine Nephrology; Admitting Provider Hospitalist; Emergency Provider Emergency Medicine; PCP Internal Medicine; Visit Provider Student in an Organized Health Care Education/Training Program
DX: R31.0 Gross hematuria (principal); D68.32 Hemorrhagic disorder due to extrinsic circulating anticoagulants; I12.0 Hypertensive chronic kidney disease with stage 5 chronic kidney disease or end stage renal disease; T45.515A Adverse effect of anticoagulants, initial encounter; Z79.01 Long term (current) use of anticoagulants; N18.6 End stage renal disease; I25.10 Atherosclerotic heart disease of native coronary artery without angina pectoris; D64.9 Anemia, unspecified; E03.9 Hypothyroidism, unspecified; Z93.59 Other cystostomy status; I48.0 Paroxysmal atrial fibrillation; K21.9 Gastro-esophageal reflux disease without esophagitis; D47.2 Monoclonal gammopathy; N40.0 Benign prostatic hyperplasia without lower urinary tract symptoms; M19.90 Unspecified osteoarthritis, unspecified site; H40.9 Unspecified glaucoma; H35.30 Unspecified macular degeneration; N25.0 Renal osteodystrophy; Z96.651 Presence of right artificial knee joint; N35.919 Unspecified urethral stricture, male, unspecified site; G62.9 Polyneuropathy, unspecified; Z99.2 Dependence on renal dialysis; Z87.891 Personal history of nicotine dependence; Z95.1 Presence of aortocoronary bypass graft; Z95.0 Presence of cardiac pacemaker; Z95.5 Presence of coronary angioplasty implant and graft; Z95.2 Presence of prosthetic heart valve; Z98.41 Cataract extraction status, right eye; Z98.42 Cataract extraction status, left eye
CPT/HCPCS: 36415; 80053; 81001; 85025; 86706; 87086; 87088; 87340; 96365; 99212; 99285; A9270; G0463; J0696; J7030; J7040; Q5106

== ENCOUNTER 2021-01-31 10:09 | Emergency (ER) | payer MEDICARE, BC, SELFPAY ==
[2021-01-31] VITALS (33 sets, daily range): BP systolic 97–120; BP diastolic 42–72; PULSE 60–78; RESP 13–33; TEMP 36.5–36.6; O2SAT 91–100
--- NOTE | ~2021-01-31 | XR_ITS ---
XR chest 1V DATE: 01/31/2021 10:41 INDICATION: Cough. Fall. TECHNIQUE: AP chest COMPARISON: 03/02/2014 2 view chest FINDINGS: Status post sternotomy and cardiac valve replacement. Right-sided transvenous pacemaker device with leads overlying right atrium and right ventricle. There is cardiomegaly. Aortic calcification, ectasia and tortuosity. There is moderate right pleural effusion and right lower lung infiltrate and/atelectasis. There is pa tchy infiltrate or atelectasis in the left mid and lower lung zones as well. Diffuse osteopenia. IMPRESSION: Bilateral lower lung infiltrate and/atelectasis, right greater than left Moderate right pleural effusion Cardiomegaly Aortic calcification, ectasia and tortuosity Status post valve replacement Right-sided transvenous pacemaker device Diffuse osteopenia Reviewed, dictated and finalized at location A. RT MACHINE OPERATOR
--- NOTE | ~2021-01-31 | CT_ITS ---
EXAMINATION: CT brain wo con DATE: 01/31/2021 10:43 INDICATION: Head injury. TECHNIQUE: Computed tomography (CT) of the head was performed without intravenous contrast. The mA wa s adjusted according to patient size. Iterative reconstruction technique was employed. The dose-lengt h product was 681.00 mGy-cm. COMPARISON: Head CT 09/27/2019 FINDINGS: There are scattered areas of low attenuation in the cerebral white matter. There is no intr acranial hemorrhage, acute infarction, or abnormal intracranial mass lesion. The ventricles are deirdre l in size and There are likely changes of ocular lens replacement surgeries. There is mild mucosal th ickening in the paranasal sinuses. The mastoid air cells are normal. . IMPRESSION: 1. Stable extensive nonspecific cerebral white matter disease, which likely represents chronic small vessel ischemic disease. Reviewed, dictated and finalized at location A. DIGGER OPERATOR IMPRESSION: 1. Stable extensive nonspecific cerebral white matter disease, which likely rep resents chronic small vessel ischemic disease.
--- NOTE | ~2021-01-31 | CT_ITS ---
EXAMINATION: CT cervical spine wo con DATE: 01/31/2021 10:43 INDICATION: Head injury. TECHNIQUE: Computed tomography (CT) of the cervical spine was performed without intravenous contrast. Automated exposure control and iterative reconstruction technique were employed. The dose-length pro duct was 168.42 mGy-cm. COMPARISON: None FINDINGS: There is a right pleural effusion. There is 15 degrees levoscoliosis of cervical spine. The re is moderately decreased disc height at C4-C5 and severely decreased disc height at C5-C6 and C6-C7 with endplate remodeling. The following disc levels are specifically discussed: C2-C3: There is severe left uncovertebral joint osteoarthritis. There is severe bilateral facet joint osteoarthritis. There is mild left neural foraminal stenosis. There is no central canal stenosis. C3-C4: There is mild bilateral uncovertebral joint osteoarthritis. There is moderate bilateral facet joint osteoarthritis. There is no neural foraminal stenosis. There is no central canal stenosis. C4-C5: There is severe right and moderate left uncovertebral joint osteoarthritis. There is moderate bilateral facet joint osteoarthritis. There is mild bilateral neural foraminal stenosis. There is mil d central canal stenosis. C5-C6: There is severe bilateral uncovertebral joint osteoarthritis. There is severe bilateral facet joint osteoarthritis. There is mild bilateral neural foraminal stenosis. There is mild central canal stenosis. C6-C7: There is severe bilateral uncovertebral joint osteoarthritis. There is severe bilateral facet joint osteoarthritis. There is mild left neural foraminal stenosis. There is mild central canal steno sis. C7-T1: There is no uncovertebral joint osteoarthritis. There is moderate bilateral facet joint osteoa rthritis. There is no neural foraminal stenosis. There is no central canal stenosis. IMPRESSION: 1. No fracture. 2. Severe cervical spondylosis. 3. Cervical levoscoliosis. Reviewed, dictated and finalized at location A. TRICAL PROJECT ENGINEER
--- NOTE | 2021-01-31 10:46 | ED.FALL ---
HPI - Fall General Chief Complaint: Fall Stated Complaint: Fall Time Seen by Provider: 01/31/21 10:12 Source: patient Mode of arrival: ambulatory Limitations: no limitations History of Present Illness HPI Narrative: Patient is a 85-year-old male with chief complaint of laceration to frontal right forehead and skin tear to right arm after sitting in a wheelchair in [facility] lobby and falling forward striking himself. Patient only reports discomfort to the area of laceration and skin tear. He denies loss of consciousness, changes in vision or hearing or neurological deficits. Patient denies pain to his neck. Patient denies pain to his chest or extremities or back. Patient reports that he has a slight cough due to yelling at his yesterday because she refuses to use her hearing aids. He denies any fevers, chills, nausea, vomiting, shortness of breath or chest pain. Patient reports that he was at [place] [facility] trying to provide a urine sample to his primary care as his home health nurse suspects that he has a UTI due to changes to the urine in his catheter bag. He reports it has been more cloudy. Related Data Home Medications Medication Instructions Recorded Confirmed cinacalcet 30 mg PO DAILY 01/20/19 01/08/21 furosemide 80 mg PO DAILY 01/20/19 01/08/21 Eliquis 2.5 mg PO BID 09/21/20 01/08/21 amiodarone [Pacerone] 200 mg PO BID 09/21/20 01/08/21 gabapentin 100 mg PO HS 10/14/20 01/08/21 levothyroxine 125 mcg PO DAILY 10/14/20 01/08/21 finasteride 5 mg PO DAILY 01/04/21 01/08/21 Allergies Allergy/AdvReac Type Severity Reaction Status Date / Time Penicillins Allergy Severe KIDNEY Verified 01/08/21 14:20 DAMAGE, RASH Sulfa (Sulfonamide AdvReac Unknown Nausea and Verified 01/08/21 14:20 Antibiotics) Vomiting Review of Systems Review of Systems: CONSTITUTIONAL: Denies fever, chills, or sweats. EYES: Denies visual changes, redness, or discharge. ENT: Denies rhinorrhea, congestion, sore throat, or otalgia. CARDIOVASCULAR: Denies chest pain, palpitations, or edema. RESPIRATORY: Reports cough or dyspnea. GASTROINTESTINAL: Denies abdominal pain, nausea, vomiting, or diarrhea. GENITOURINARY: Denies dysuria or hematuria. SKIN: Reports laceration and skin avulsion denies rash or itching. MUSCULOSKELETAL: Denies back pain, joint pain, or myalgia. NEUROLOGIC: Denies headache, numbness, dizziness, or weakness. PSYCHIATRIC: Denies anxiety or depression. [facility] Past Medical History Medical History (Updated 01/31/21 @ 13:43 by Leeann Johnson PA-C) Arthritis Chronic anemia Coronary artery disease History of bypass and stents. Patient of Dr. Declan Branch at [facility]. 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 Neuropathy NSTEMI (non-ST elevated myocardial infarction) Pacemaker Paroxysmal atrial fibrillation Renal osteodystrophy Surgical History Surgical History History of aortic valve replacement with bioprosthetic valve (~08/2008) History of bilateral cataract extraction History of bladder surgery History of coronary artery bypass graft x 3 (~08/2008) History of cystoscopy History of pacemaker (~04/2018) History of tonsillectomy History of total right knee replacement (~2013) History of transurethral resection of prostate Family History Family History Sibling Family history of Alzheimer's disease Family history of throat cancer Mother Family history of malignant neoplasm of breast in first degree relative Family history of heart disease in male family member before age 55 Patient's mother is Family history of cardiovascular disease Father Family history of heart disease in male family member before age 55 Patient's fathe
[2021-01-31 11:59] LABS: Add Urine Microscopic? YES; Appearance Urine Turbid (Clear); Bacteria Urine Trace /hpf; Bilirubin Urine Negative (Negative); Blood Urine 3+ (Negative); Color Urine Amber (Yellow); Glucose Urine UA Negative (Negative); Ketones Urine Negative (Negative); Leukocyte Esterase Ur 3+ LEU/UL (Negative); Nitrate Urine Negative (Negative); Protein Urine 2+ mg/dL (Negative); RBC Urine >75 /hpf (0-2); Specific Grav Ur 1.011 (1.001-1.035); Urobilinogen Urine Negative mg/dL (<2.0); WBC Clumps Urine Present /HPF; WBC Urine >75 /hpf
[2021-02-01 16:37] LABS: SARS-CoV-2 RNA PCR Negative
== END 2021-01-31 14:15 | disposition home or self-care (01) ==
PROVIDERS: Physician Assistant; Emergency Provider Emergency Medicine; PCP Internal Medicine
DX: S01.81XA Laceration without foreign body of other part of head, initial encounter (principal); N39.0 Urinary tract infection, site not specified; R91.8 Other nonspecific abnormal finding of lung field; Z20.822 Contact with and (suspected) exposure to COVID-19; I25.10 Atherosclerotic heart disease of native coronary artery without angina pectoris; N18.9 Chronic kidney disease, unspecified; D63.1 Anemia in chronic kidney disease; H40.9 Unspecified glaucoma; M10.9 Gout, unspecified; H35.30 Unspecified macular degeneration; I25.2 Old myocardial infarction; I48.0 Paroxysmal atrial fibrillation; Z79.01 Long term (current) use of anticoagulants; N25.0 Renal osteodystrophy; Z95.2 Presence of prosthetic heart valve; Z95.1 Presence of aortocoronary bypass graft; Z95.5 Presence of coronary angioplasty implant and graft; Z95.0 Presence of cardiac pacemaker; Z98.42 Cataract extraction status, left eye; Z98.41 Cataract extraction status, right eye; Z96.651 Presence of right artificial knee joint; Z90.79 Acquired absence of other genital organ(s); Z87.891 Personal history of nicotine dependence; I51.7 Cardiomegaly; J90 Pleural effusion, not elsewhere classified; M85.88 Other specified disorders of bone density and structure, other site; I77.819 Aortic ectasia, unspecified site; I77.1 Stricture of artery; I70.0 Atherosclerosis of aorta; W05.0XXA Fall from non-moving wheelchair, initial encounter
CPT/HCPCS: 12011; 70450; 71045; 72125; 81001; 87077; 87086; 87186; 99284; C9803; U0003; U0005